=== PATIENT | female | born 1935 | race Caucasian/White ===

== ENCOUNTER → 2017-03-23 | Outpatient (CLI) | payer OTHER ==
[~2017-03-23] MED LIST: APAP650 PO; CHLORTHALIDONE25 MG PO; IBUPROFEN 200200 M1 PO; LISINOPRIL20 MG PO; LOPRESSOR50 PO; POTASSIUM20 PO; PROZAC20 MG PO; SYNTHROID75 MCG PO; VITAMIN D1000 UNI1 PO; VOLTAREN GEL 1100 GM TOP; XANAX 0.5 MG0.5 M1 PO
== END ==
LOC: RAD 09:12
DX: K44.9 Diaphragmatic hernia without obstruction or gangrene (principal); I10 Essential (primary) hypertension; E03.9 Hypothyroidism, unspecified; E04.1 Nontoxic single thyroid nodule; E83.52 Hypercalcemia; Z98.890 Other specified postprocedural states

== ENCOUNTER 2017-06-03 18:34 | Inpatient (IN) | payer OTHER ==
[~2017-06-03] VITALS: Ht 160 cm; Wt 56.5 kg
--- NOTE | ~2017-06-03 | D ---
[facility] [place] [address] DISCHARGE SUMMARY Name: SEBASTIAN BOSS Room #: 404-P [facility] IN M.R.#: [id number] Admission: 06/03/17 Attend Phys: Crystal Huggins Discharge: 06/05/17 Date of : 31 Report #: [id number] THIS REPORT FOR: //name// CC: Fabricio Copeland DATE OF SERVICE: 06/05/2017 FINAL DIAGNOSES: 1. Subacute hemorrhagic stroke. 2. Hypertension. HOSPITAL COURSE: The patient was admitted with confusion. She had an outpatient MRI, which revealed a subacute hemorrhagic stroke. She remained medically stable during the course of her stay. She had no change in neurologic symptoms. Dr. Sifuentes saw her in consultation. Ultimately, the plan was for medical management. She had no other interval complication. DISPOSITION: She will be discharged home with diet and activity as tolerated. Follow up with Dr. Copeland in 1-2 weeks. She should be on the current medications. <ELECTRONICALLY SIGNED> By: Angelo Dias MD 07/02/17 0855 1509 1552 Angelo Dias MD /nt
--- NOTE | ~2017-06-03 | 2DMMODE ---
[facility] [address] [place] [address] 2 D/M-MODE ECHOCARDIOGRAM Name: SEBASTIAN BOSS Room #: 404-P ADM IN M.R.#: [id number] Admission: 06/03/17 Attend Phys: Fabricio Puente Discharge: Date of : 31 Date of Service: 06/04/17 1118 Report #: [id number] THIS REPORT FOR: //name// APPROVED REPORT Study performed: 06/04/2017 09:35:12 EXAM: Comprehensive 2D, Doppler, and color-flow Echocardiogram Patient Location: Echo lab Room #: [facility] Status: routine BSA: 1.52 HR: 54 bpm BP: 149/62 mmHg Rhythm: NSR Other Information Study Quality: Adequate/poor parasternal window due to breast implants Indications CVA/TIA Echo Enhancing Agent Comments: Patient did not want IV started for bubble study. 2D Dimensions RVDd: 29.85 mm LVEF(%): 75.40 (>50%) IVSd: 10.83 (7-11mm) LVOT Diam: 18.91 (18-24mm) LVDd: 30.91 mm PWd: 9.40 (7-11mm) Ascending Ao: 27.31 (22-36mm) LVDs: 17.66 (25-40mm) Aortic Root: 28.42 mm Robles's LVEF: 75.40 % Volumes Left Atrial Volume (Systole) Single Plane 4CH: 22.94 mL Single Plane 2CH: 28.37 mL LA ESV Index: 18.00 mL/m2 Aortic Valve AoV Peak Rico.: 1.29 m/s AO Peak Gr.: 6.68 mmHg LVOT Max P.64 mmHg LVOT Max V: 0.95 m/s NEAL Vmax: 2.07 cm2 [facility] [place] [address] 2 D/M-MODE ECHOCARDIOGRAM Name: SEBASTIAN BOSS Room #: 404-P [facility] IN .R.#: [id number] Admission: 06/03/17 Attend Phys: Fabricio Puente Discharge: Date of : 31 Date of Service: 06/04/17 1118 Report #: [id number] Mitral Valve E/A Ratio: 0.8 MV Decel. Time: 251.96 ms MV E Max Rico.: 0.62 m/s MV A Rico.: 0.76 m/s MV PHT: 73.07 ms IVRT: 78.43 ms Pulmonary Valve PV Peak Rico.: 0.77 m/s PV Peak Gr.: 2.40 mmHg Pulmonary Vein P Vein S: 0.54 m/s P Vein A: 0.38 m/s P Vein D: 0.41 m/s P Vein A Dur.: 120.0 msec P Vein S/D Ratio: 1.32 Tricuspid Valve TR Peak Rico.: 2.47 m/s RAP Estimate: 5.00 mmHg TR Peak Gr.: 24.40 mmHg PA Pressure: 29.00 mmHg Left Ventricle The left ventricle is normal size. There is normal LV segmental wall motion. There is normal left ventricular wall thickness. Left ventricular systolic function is normal. LVEF is 60-65%. Mild diastolic dysfunction is present (impaired relaxation pattern). Right Ventricle The right ventricle is normal size. The right ventricular systolic function is normal. Atria The left atrium size is normal. No ASD or PFO noted with color doppler. The right atrium size is normal. Aortic Valve The aortic valve is not well visualized. No aortic regurgitation is noted. There is no aortic valvular stenosis. Mitral Valve The mitral valve is normal in structure. Trace to mild mitral regurgitation. Tricuspid Valve [facility] [address] [place] [address] 2 D/M-MODE ECHOCARDIOGRAM Name: SEBASTIAN BOSS Room #: 404-P [facility] IN [facility]#: [id number] Admission: 06/03/17 Attend Phys: Fabricio Peunte Discharge: Date of : 31 Date of Service: 06/04/17 1118 Report #: [id number] The tricuspid valve is normal in structure. Mild tricuspid regurgitation. Estimated PAP is 30mmHg. Pulmonic Valve Pulmonic valve is not well visualized. Great Vessels The aortic root is normal in size. The ascending aorta is normal in size. IVC is normal in size and collapses >50% with inspiration. Pericardium There is no pericardial effusion. <Conclusion> The left ventricle is normal size. LVEF is 60-65%. Mild diastolic dysfunction is present (impaired relaxation pattern). The aortic valve is not well visualized. No aortic regurgitation is noted. The mitral valve is normal in structure. Trace to mild mitral regurgitation. The tricuspid valve is normal in structure. Mild tricuspid regurgitation. Estimated PAP is 30mmHg. Pulmonic valve is not well visualized. There is no pericardial effusion. No ASD or PFO noted with color doppler. <ELECTRONICALLY SIGNED> By: Randal Rizzo MD 06/04/17 1118 1118 1118 Randal Rizzo MD /INF
--- NOTE | ~2017-06-03 | HC ---
[facility] [place] [address] CONSULTATION Name: SEBASTIAN BOSS Room #: 404-P [facility] IN M.R.#: [id number] Admission: 06/03/17 Attend Phys: Crystal Huggins Discharge: 06/05/17 Date of : 33 Report #: [id number] THIS REPORT FOR: //name// CC: Fabricio Copeland DATE OF SERVICE: 06/04/2017 HISTORY OF PRESENT ILLNESS: This is an 81-year-old female patient who was evaluated by me because this patient had some memory issues and was not doing very well and was confused. She was still able to drive according to her. She had some difficulty with concentration as well as communication. This was also associated with drowsiness. As an evaluation for that, this patient had an MRI of the brain. MRI was done outside and as I understand demonstrates a small stroke. I do not have the films to review that, but it looks like it was in the left putamen and the caudate nucleus. The patient continued to be same. REVIEW OF SYSTEMS: Indicate that she was functional before this stroke. She denies any prior history of stroke. She had started taking antidepressant around 05/11. She does not have any major cardiac problems. She was not on aspirin when it happened. She does feel depressed, but does not look like she has any new eye, ENT, cardiac, respiratory, GI, , musculoskeletal, constitutional, dermatological, hematological symptoms. She does feel depressed. She does not have any new endocrine, throat or allergic symptom associated with present symptomatology. She does have a problem with expression. She has hypothyroidism, arthritis and GERD in the past. PAST MEDICAL HISTORY: Negative for stroke. FAMILY HISTORY: Negative for early age stroke. SOCIAL HISTORY: She does not have any history of alcohol or tobacco use. PHYSICAL EXAMINATION: The patient's examination indicate she is alert, she is responsive. She is oriented. She does look depressed. She does have some difficulty with expressing herself. Her speech, concentration and fund of knowledge was examined. Her speech is mildly impaired, but memory and fund of knowledge looks intact. Cranial nerve examination 2-12 mostly looks unremarkable. Her strength, sensation, reflexes and tone looks symmetrical. There is no cerebellar sign. There is no meningeal sign in this patient. I do not hear any carotid bruit. There is no thyroid mass. This patient is reasonably well-developed individual who does not have any dysmorphic features of eyes, ears and face. Her vision and hearing looks adequate. She does not have any edema, cyanosis or jaundice. Pulses are difficult to feel, but I think are palpable. Cardiac examination does not show any abnormality or atrial fibrillations or any marked problem with the heart sound. No respiratory difficulty or rhonchi was noticed. Blood pressure is 122/42, respiration is 20, [facility] [address] [place] [address] CONSULTATION Name: SEBASTIAN BOSS Room #: 404-P [facility] IN M.R.#: [id number] Admission: 06/03/17 Attend Phys: Crystal Huggins Discharge: 06/05/17 Date of : 33 Report #: [id number] pulse is 53 and temperature is 98.3. LABORATORY DATA: White count is 7.1 and GFR is only 39. She did have an MRI and carotid Doppler. I have only reports and that was reviewed. IMPRESSION: 1. 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 2. Evaluation to look for any vascular risk factor and predisposition for further strokes. 3. She will need extensive monitoring for atrial fibrillation as an outpatient. 4. I agree with antidepressant because she does appear to be depressed either because of stroke or otherwise. 5. We will look for some other cause like B12, thyroid. RECOMMENDATIONS: 1. MRA of the head and neck tomorrow. 2. No antiplatelet for the time being, but once the hemorrhage clear up she can be started. 3. I will do the CT for comparison and we will look at it to see if there is any doubt for the tumor and if there is a doubt for the tumor we will do the enhanced MRI or CT. 4. We will do some blood workup like TSH and vitamin B12. 5. We will await rest of the workup. Thank you very much for this referral and if you have any question, please feel free to contact me. <ELECTRONICALLY SIGNED> By: John Sifuentes MD 06/17/17 1355 1714 0014 John Sifuentes MD /nt
--- NOTE | ~2017-06-03 | H ---
[facility] [place] [address] HISTORY AND PHYSICAL Name: KARYNSEBASTIAN Maulik Room #: 404-P [facility] IN M.R.#: [id number] Admission: 06/03/17 Attend Phys: Crystal Huggins Discharge: Date of : 33 Report #: [id number] THIS REPORT FOR: //name// CC: Fabricio Copeland DATE OF SERVICE: 06/03/2017 CHIEF COMPLAINT: Confusion. HISTORY OF PRESENT ILLNESS: The patient is an 81-year-old female who was admitted from home with recent symptoms of confusion and a recent stroke. She reported for the last couple of weeks of difficulty with her concentration and memory. She said she has felt kind of weak all over and "fog." She had trouble communicating, and there was one day where she was very drowsy. She was seen in the office and then directed for an MRI of the brain yesterday. This revealed a subacute small pontine hemorrhagic stroke. She has been admitted for medical treatment. PAST MEDICAL HISTORY: Hypothyroidism, arthritis, GERD. PAST SURGICAL HISTORY: Noncontributory. FAMILY HISTORY: Unknown. SOCIAL HISTORY: No chronic alcohol or tobacco use. ALLERGIES: Unknown. MEDICATIONS: Prilosec, Levoxyl. REVIEW OF SYSTEMS: She denies headache, visual change, chest pain, shortness of breath, abdominal pain, nausea, vomiting, diarrhea, constipation, dysuria, syncope. OBJECTIVE: VITAL SIGNS: Temperature 36.7, pulse 54, respirations 20, blood pressure 149/62, O2 sat 99% on room air. GENERAL: She is awake and alert, in no distress. HEAD AND NECK: Unremarkable. LUNGS: Clear. HEART: Regular. ABDOMEN: Soft, normoactive bowel sounds. EXTREMITIES: No edema. NEUROLOGIC: She is oriented to place. She knew me by name. Follows all commands. Global strength intact about 4/5 throughout. [facility] [address] [place] [address] HISTORY AND PHYSICAL Name: SEBASTIAN BOSS Room #: 404-[facility]#: [id number] Admission: 06/03/17 Attend Phys: Crystal Huggins Discharge: Date of : 33 Report #: [id number] BASIC LABORATORY DATA: Unremarkable. Creatinine 1.3. Chest x-ray negative. MRI revealed acute or subacute infarct including hemorrhagic component to the left putamen and caudate. There are other signs of white matter ischemic changes. ASSESSMENT: Hemorrhagic stroke. PLAN: For now, it should be medically managed. It is unclear when exactly this event happened as she has had about 2 weeks or more of symptoms. I have asked the Neurology Service to follow her. May need followup imaging in the coming days to ensure stability. Currently, she is medically stable and stable from a neurologic standpoint that she can remain hospitalized here. <ELECTRONICALLY SIGNED> By: Angelo Dias MD 06/04/17 1243 0958 1024 Angelo Dias MD /moriah
[2017-06-03 20:00] VITALS: BP 152/70
[2017-06-04 04:00] VITALS: BP 161/66
[2017-06-04 05:35] LABS: HEMATOCRIT 39.4 % (37.0-47.0); HEMOGLOBIN 13.5 gm/dL (12.0-15.0); MCHC 34.2 g/dL (28.0-37.0); MCV 87.7 fL (80.0-100.0); RBC 4.49 mil/uL (4.20-5.00); RDW 13.1 % (10.5-14.5); WBC 7.1 thou/uL (4.0-11.0)
[2017-06-04 05:45] LABS: ALBUMIN 3.4 g/dL (3.4-5.0); CALCIUM 9.1 mg/dL (8.5-10.1); CREATININE 1.3 mg/dL (0.6-1.0); POTASSIUM 3.6 mmol/L (3.5-5.1); TOTAL PROTEIN 6.5 g/dL (6.4-8.2)
[2017-06-04 07:02] VITALS: BP 149/62
[2017-06-04 08:20] LABS: URINE BILIRUBIN NEGATIVE (Negative); URINE BLOOD 1+ (Negative); URINE CLARITY CLEAR; URINE COLOR YELLOW; URINE GLUCOSE-RANDOM* NEGATIVE (Negative); URINE KETONES NEGATIVE (Negative); URINE LEUKOCYTES NEGATIVE (Negative); URINE NITRITE NEGATIVE (Negative); URINE PROTEIN (DIPSTICK) NEGATIVE (Negative); URINE UROBILINOGEN 0.2 E.U./dl (0.2-1.0)
[2017-06-04 08:31] LABS: SQUAMOUS 4-10 Moderate /LPF (0-3)
[2017-06-04 08:32] LABS: BACTERIA 1-9 Few /HPF (None Seen); CASTS None Seen /LPF (None Seen); CRYSTALS None Seen /LPF (None Seen); URINE RBC 3-10 Few /HPF (0-2); URINE WBC 0-5 Rare /HPF (0-5)
[2017-06-04 15:27] VITALS: BP 122/42
[2017-06-04] MEDS ORDERED: SYNTHROID75 MCG PO (17:15)
[2017-06-04] MEDS ORDERED: CHLORTHALIDONE25 MG PO (17:15)
[2017-06-04] MEDS ORDERED: LISINOPRIL20 MG PO (17:16)
[2017-06-04] MEDS ORDERED: LOPRESSOR50 PO (17:16)
[2017-06-04] MEDS ORDERED: POTASSIUM20 PO (17:17)
[2017-06-04] MEDS ORDERED: VITAMIN D1000 UNI1 PO (17:17)
[2017-06-04] MEDS ORDERED: PROZAC20 MG PO (17:23)
[2017-06-04 19:33] VITALS: BP 116/46
[2017-06-05 04:52] VITALS: BP 124/58
[2017-06-05 04:52] LABS: CHOLESTEROL 198 mg/dL (<200); HDL CHOLESTEROL 42 mg/dL (>40); LDL CHOLESTEROL 121 mg/dL (<100); TC:HDL 4.7 Ratio (Not establshd); TRIGLYCERIDE 175 mg/dL (<150); VLDL 35 mg/dL (<40)
[2017-06-05 04:54] LABS: SERUM ASSESSMENT Slight Lipemia
[2017-06-05 05:31] LABS: TSH 0.605 uIU/mL (0.358-3.740)
[2017-06-05 09:09] VITALS: BP 136/56
[2017-06-05 16:23] VITALS: BP 112/42
[2017-06-05 17:42] VITALS: BP 112/42
[2017-06-28] MEDS ORDERED: APAP650 PO (13:53)
[2017-06-28] MEDS ORDERED: IBUPROFEN 200200 M1 PO (14:08)
[2017-06-28] MEDS ORDERED: VOLTAREN GEL 1100 GM TOP (14:21)
== END 2017-06-05 17:55 | disposition home or self-care (01) | DRG 66 ==
LOC: 4N 18:34
PROVIDERS: Internal Medicine Geriatric Medicine; Psychiatry & Neurology Neuromuscular Medicine
DX: I63.9 Cerebral infarction, unspecified (principal); R41.0 Disorientation, unspecified; E03.9 Hypothyroidism, unspecified; M19.90 Unspecified osteoarthritis, unspecified site; K21.9 Gastro-esophageal reflux disease without esophagitis; I10 Essential (primary) hypertension; E78.5 Hyperlipidemia, unspecified
CPT/HCPCS: 10790

== ENCOUNTER 2017-06-15 10:37 | Emergency (ER) | payer OTHER ==
--- NOTE | ~2017-06-15 | EKG ---
[address] [address] ELECTROCARDIOGRAM REPORT Name: SEBASTIAN BOSS [id number] Admission: 06/15/17 Attend Phys: Discharge: 06/15/17 Date of : 33 Report #: [id number] THIS REPORT FOR: //name// [facility] ED Test Date: 2017-06-15 Test Time: 12:20:04 Pat Name: SEBASTIAN BOSS Department: Room: Gender: F Beam Builder: naveed : 1935 Requested By: Haja Crook Order Number: [id number] MD: Leonid Mcconnell Measurements Intervals [place] [facility] [place] Rate: 50 P: 87 AL: 185 QRS: 70 QRSD: 92 T: 94 QT: 432 QTc: 394 Interpretive Statements Sinus bradycardia Nonspecific ST segment abnormality No previous ECG available for comparison Electronically Signed On 06-15-2017 17:07:28 CDT by Leonid Mcconnell [email or web address] <ELECTRONICALLY SIGNED> By: Leonid Mcconnell MD, [facility] 06/15/17 1707 1220 1220 Leonid Mcconnell MD, FACC /EPI
[~2017-06-15 10:37] MED LIST changes: -APAP650 PO; -IBUPROFEN 200200 M1 PO; -VOLTAREN GEL 1100 GM TOP; -XANAX 0.5 MG0.5 M1 PO
[2017-06-15 12:09] LABS: ABSOLUTE NEUTROPHILS 2.5 thou/uL (1.4-8.2); BASOPHILS 0.7 % (0.0-2.0); EOSINOPHILS 1.9 % (0.0-3.0); HEMATOCRIT 41.2 % (37.0-47.0); HEMOGLOBIN 14.3 gm/dL (12.0-15.0); LYMPHOCYTES 33.4 % (24.0-44.0); MCH 30.4 pg (26.0-34.0); MCHC 34.7 g/dL (28.0-37.0); MCV 87.4 fL (80.0-100.0); MONOCYTES 9.3 % (1.0-8.0); PLATELET COUNT 214 thou/uL (150-400); POLYS 54.7 % (36.0-66.0); RBC 4.71 mil/uL (4.20-5.00); RDW 13.3 % (10.5-14.5); WBC 4.6 thou/uL (4.0-11.0)
[2017-06-15 12:17] LABS: CALCIUM 9.7 mg/dL (8.5-10.1); CREATININE 1.2 mg/dL (0.6-1.0); POTASSIUM 3.8 mmol/L (3.5-5.1)
[2017-06-15 12:23] LABS: ALBUMIN 3.9 g/dL (3.4-5.0); TOTAL BILIRUBIN 1.2 mg/dL (<0.1-1.0); TOTAL PROTEIN 7.5 g/dL (6.4-8.2)
[2017-06-15 12:37] LABS: URINE BILIRUBIN NEGATIVE (Negative); URINE BLOOD 2+ (Negative); URINE CLARITY CLEAR; URINE COLOR YELLOW; URINE GLUCOSE-RANDOM* NEGATIVE (Negative); URINE KETONES NEGATIVE (Negative); URINE LEUKOCYTES-REFLEX 1+ (Negative); URINE NITRITE-REFLEX NEGATIVE (Negative); URINE PROTEIN (DIPSTICK) NEGATIVE (Negative); URINE SPECIFIC GRAVITY 1.015 (1.005-1.035); URINE UROBILINOGEN 0.2 E.U./dl (0.2-1.0)
[2017-06-15 12:51] LABS: CASTS None Seen /LPF (None Seen); SQUAMOUS 0-3 Few /LPF (0-3)
[2017-06-15 12:52] LABS: BACTERIA-REFLEX 1-9 Few /HPF (None Seen); CRYSTALS None Seen /LPF (None Seen); URINE RBC 0-2 Rare /HPF (0-2); URINE WBC-REFLEX 0-5 Rare /HPF (0-5)
== END 2017-06-15 13:23 | disposition home or self-care (01) ==
LOC: ER 10:37
PROVIDERS: Emergency Medicine
DX: R44.0 Auditory hallucinations (principal); R20.2 Paresthesia of skin; E03.9 Hypothyroidism, unspecified; M19.90 Unspecified osteoarthritis, unspecified site; K21.9 Gastro-esophageal reflux disease without esophagitis

== ENCOUNTER → 2017-06-28 | Outpatient (CLI) | payer OTHER ==
[~2017-06-28] VITALS: Ht 162.6 cm; Wt 54.9 kg
[~2017-06-28] MED LIST changes: +APAP650 PO; +IBUPROFEN 200200 M1 PO; +VOLTAREN GEL 1100 GM TOP
--- NOTE | ~2017-06-28 | HPC ---
[facility] [address] [place] [address] PAIN MANAGEMENT CONSULTATION Name: SEBASTIAN BOSS [facility] [id number] Admission: 06/28/17 Attend Phys: Grey Barksdale DO Discharge: Date of : 33 Report #: [id number] THIS REPORT FOR: //name// CC: Moreno Barksdale DATE OF SERVICE: 06/28/2017 HISTORY OF PRESENT ILLNESS: The patient is a very pleasant 81-year-old female seen in consultation at the request of Dr. Copeland for assistance with management of ongoing neck pain. The patient notes developed neck and shoulder pain without antecedent trauma sometime around March of this year. She is doing some physical therapy with nominal efficacy. Rates the pain a 5-7 on a VAS. Described it as intermittent, sharp and shooting. Seems to be exacerbated with any cervical movement. She has an interesting history, she notes that she went to see a massage therapist subsequent to developing these symptoms. She had 2 massages. After the second massage, she had significant cognitive changes. Notes that she had difficulty finding her words, felt like she was "in a fog." Ultimately was worked up and found to have suffered a left lentiform nucleus distribution small brain bleed. It was felt that on subsequent MR (2 days later) that the size was stable. Ultimately, she has been treated conservatively. She presents noting she is "improved" from a cognitive function, but still notes she has a little decline in her memory and cognitive function. She denies any myelopathic symptoms, no bowel or bladder continent changes or loss of proprioception of lower extremities. Pain is centered to the neck and shoulders. No radicular symptoms noted in the upper extremities. REVIEW OF SYSTEMS: Complete review of systems attached to chart and gone over with the patient. She does not smoke or drink alcohol to excess. Currently taking amlodipine, lisinopril and metoprolol for hypertension, levothyroxine chronically for hypothyroidism. She has been retired for 30 years. Pain impact score averages about 39/70. PHYSICAL EXAMINATION: VITAL SIGNS: Reveals a 5 feet 4 inches, 121 pounds female, BMI is 20.8 kilograms per meter squared. Blood pressure is 157/82, pulse 55, respirations 14. NEUROLOGIC: Cranial 2-12 appear intact. Extraocular muscles are intact. She is alert and oriented to person, place and time, though admits to being a bit of a poor historian. NECK: Cervical range of motion exacerbates pain in all planes. Pain is primarily low neck and the shoulders, does not radiate into the arms. Thyroid [address] [address] PAIN MANAGEMENT CONSULTATION Name: SEBASTIAN BOSS Room #: REG [facility] Luz Maria.#: [id number] Admission: 06/28/17 Attend Phys: Grey Barksdale DO Discharge: Date of : 33 Report #: [id number] is unremarkable. EXTREMITIES: Upper extremity strength is preserved, 4/5 to all muscle groups tested. Biceps, triceps, brachioradialis reflexes are symmetric. HEART: Regular and rhythmical with a grade 2/6 systolic ejection murmur. LUNGS: Clear. ABDOMEN: Benign. MUSCULOSKELETAL: Rises from chair using the armrest. Gait is tandem. Slight ataxia with some movements when asked to perform a toe touch (lumbar flexion is good to 90 degrees). Upon arising, she had a little dysequilibrium that passed quickly. Very tender over the inferior cervical facets, some trigger points noted in the trapezius bilaterally. DIAGNOSTIC STUDIES: X-ray from diagnostic imaging centers appears was accomplished on 05/24/2017 does note facet degenerative changes at C5-C6 and C6-C7. This does correlate with cervical spondylotic symptoms clinically at this level. Incidentally, I did note when the patient was in the ER on 06/15/2017, she has poor renal function, BUN and creatinine were 22 and 1.2 respectively yielding a eGFR of 43. ASSESSMENT: Symptomatic cervical spondylosis without myelopathy. RECOMMENDATION: 1. We discussed bilateral C5-C6 and C6-C7 facet joint injections under fluoroscopy. The patient would like to wait 1 week, have her daughter here. 2. We will trial topical Voltaren gel. Even with low kidney function, nominal systemic absorption should enable us to use this agent. I did caution the patient that she should not use any oral NSAID (she had been using Advil). Thank you for allowing me to participate in the patient's care. I will plan on moving forward with cervical facet joint injection under fluoroscopy at next visit. I will keep you abreast of her progress. <ELECTRONICALLY SIGNED> By: Grey Barksdale DO 06/30/17 0753 1429 0012 Grey Barksdale DO /nt
[2017-06-28 13:50] VITALS: BP 157/82
== END ==
LOC: PAIN 06-25 07:17
DX: M47.892 Other spondylosis, cervical region (principal)

== ENCOUNTER → 2017-07-05 | Outpatient (CLI) | payer OTHER ==
[~2017-07-05] VITALS: Ht 162.6 cm; Wt 55.5 kg
--- NOTE | ~2017-07-05 | HPC ---
[facility] [place] [address] PAIN MANAGEMENT CONSULTATION Name: SEBASTIAN BOSS [facility] [id number] Admission: 07/05/17 Attend Phys: Grey Barksdale DO Discharge: Date of : 33 Report #: [id number] THIS REPORT FOR: //name// CC: Fabricio Barksdale DATE OF SERVICE: 07/05/2017 The patient is an 81-year-old female, prior seen in the pain clinic 06/28/2017. She was seen in consultation at that time, diagnosed with symptomatic cervical spondylosis without myelopathy. We sought authorization for bilateral cervical facet joint injections x 2 levels. She returns to pain clinic today with ongoing pain in the neck, exacerbated with cervical rotation and side bending. PHYSICAL EXAMINATION: Shows tenderness a little bit higher. On physical exam in the fluoroscopy suite, it was determined that the epicenter of pain was at the C3-C4 and C4-C5 facet joints. We would like to proceed with bilateral C3-C4 and C4-C5 facet joint injection under fluoroscopy. ASSESSMENT: Symptomatic cervical spondylosis without myelopathy. PROCEDURE: Bilateral 2-level cervical facet joint injections under fluoroscopy (4 facet joints in total). PROCEDURE NOTE: After written informed consent was obtained, the patient was taken to fluoroscopy suite, placed in prone position. After sterile prep and drape, skin wheal was raised. A 22-gauge stylet needle was placed to contact posterior aspect of the left C3-C4 and C4-C5 facet joints. AP and lateral projections showed good needle placement in the middle of the lateral mass and at the posterior aspect of the joint. The procedure was repeated on the contralateral, i.e., right side. After all four needles were placed, each needle was then injected with 2 mg of Decadron plus 1 mL of 0.5% preservative-free bupivacaine. All 4 needles were removed, area was cleansed, Band-Aids applied. Fluoroscopy time was 17 seconds. The patient was allowed to ambulate to recovery room, monitored for an appropriate period of time, discharged in good and stable condition, noting pain was absent on discharge, having been a 5 on VAS on admission. Follow up is as needed. <ELECTRONICALLY SIGNED> By: Grey Barksdale DO 07/07/17 0819 1214 1420 Grey Barksdale DO /nt
[2017-07-05 09:21] VITALS: BP 161/67
== END | disposition home or self-care (01) ==
LOC: PAIN 07:00
DX: M47.812 Spondylosis without myelopathy or radiculopathy, cervical region (principal)

== ENCOUNTER → 2017-07-26 | Outpatient (CLI) | payer OTHER ==
[~2017-07-26] VITALS: Ht 162.6 cm; Wt 54.5 kg
[~2017-07-26] MED LIST changes: +XANAX 0.5 MG0.5 M1 PO
--- NOTE | ~2017-07-26 | HPC ---
[facility] [place] [address] [place] [address] PAIN MANAGEMENT CONSULTATION Name: KARYNSEBASTIAN L [facility] [id number] Admission: 07/26/17 Attend Phys: Grey Barksdale DO Discharge: Date of : 33 Report #: [id number] THIS REPORT FOR: //name// CC: Fabricio Barksdale HISTORY OF PRESENT ILLNESS: The patient is an 82-year-old female, prior seen in the pain clinic on 07/05/2017. We progressed to perform bilateral C3-C4 and C4-C5 cervical facet joint injections at that time. Prior intervention and consultation on 06/28/2017, facet joint injection at C5-C6 and C6-C7 had afforded nominal relief, though the second injection little bit higher at C3-C4 and C4-C5 did afford significant ongoing relief. The patient rates her pain 4 on a VAS today. Notes pain is in neck and bilateral shoulders; exacerbated with cervical range of motion, though to her credit, she has been doing cervical range of motion and upper extremity exercises as taught at physical therapy. She feels that she is getting better. She prior had a lacunar stroke. She does tell me that she feels overall that her cognitive function is improving as she slowly resolves from sequelae of that event. PHYSICAL EXAMINATION: Shows pleasant 82-year-old female, BMI is 20.6 kilograms per meter squared. Blood pressure is 152/67, pulse 54, respirations 16. Subjective pain score is 4 on a VAS. She has not fallen in the last 3 months. Medication list was reconciled. She has been treated for hypertension. She does not use tobacco products. She is alert and oriented to person, place, and time and judged to be a reasonable historian. Cervical range of motion is modestly limited. Very tender over the mid superior cervical facets. Palpation here reproduces pain in posterior occiput and into the shoulders. Upper extremity strength, however, is preserved. Hand grasp is symmetric. ASSESSMENT: Symptomatic cervical spondylosis without myelopathy by clinical exam and history. RECOMMENDATIONS: The patient would like to repeat cervical C3-C4 and C4-C5 facet joint injections under fluoroscopy, though she was fairly anxious at last visit. We have elected to give the patient prescription for Xanax 0.5 mg, have a lifter driver bring her next week for a scheduled bilateral C3-C4 and C4-C5 facet joint injection under fluoroscopy. Discharged in good and stable condition. <ELECTRONICALLY SIGNED> By: Grey Barksdale DO 07/29/17 0701 1152 1358 Grey Barksdale DO /nt
[2017-07-26 09:03] VITALS: BP 152/67
== END ==
LOC: PAIN 06:46
DX: M47.892 Other spondylosis, cervical region (principal)

== ENCOUNTER → 2017-07-28 | Outpatient (CLI) | payer OTHER | LOC: MRI 06:28 | DX: I63.312 Cerebral infarction due to thrombosis of left middle cerebral artery (principal); R41.3 Other amnesia; G31.9 Degenerative disease of nervous system, unspecified ==

== ENCOUNTER → 2017-08-09 | Outpatient (CLI) | payer OTHER ==
[~2017-08-09] VITALS: Ht 165.1 cm; Wt 55.4 kg
--- NOTE | ~2017-08-09 | HPC ---
[facility] [place] [address] PAIN MANAGEMENT CONSULTATION Name: SEBASTIAN BOSS [facility] [id number] Admission: 08/09/17 Attend Phys: Grey Barksdale DO Discharge: Date of : 33 Report #: [id number] THIS REPORT FOR: //name// CC: Fabricio Barksdale HISTORY OF PRESENT ILLNESS: The patient is a very pleasant 82-year-old female being treated for symptomatic cervical spondylosis without myelopathy. Last seen in pain clinic on 07/26/2017. We sought authorization to repeat bilateral C3-C4 and C4-C5 facet joint injection under fluoroscopy. Given the patient's subjective anxiety, I did write for Xanax 0.5 to be taken this morning. 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 Returns to pain clinic noting pain is 6/7 on a VAS, pain is primarily in the neck, exacerbated with cervical rotation and side bending. No radicular symptoms are noted. ASSESSMENT: Symptomatic cervical spondylosis. PROCEDURE: Two-level bilateral cervical facet joint injection under fluoroscopy (4 facets in total). PROCEDURE NOTE: Bilateral C3-C4 and C4-C5 facet joint injection under fluoroscopy. DESCRIPTION OF PROCEDURE NOTE: After informed consent was obtained, the patient was taken to the fluoroscopy suite and placed in prone position. After sterile prep and drape, skin was raised. A 22-gauge stylet was placed to contact posterior aspect of the left C3-C4 and C4-C5 facet joints. AP and lateral projections showed good needle placement approaching posterior aspect of the joint and the middle of the lateral mass on AP projection. Two more needles were placed in a mirror fashion corresponding to the right C3-C4 and C4-C5 facets. After all needles were placed, stylets were removed and 2 mg of Decadron plus 1 mL of 0.5% preservative-free bupivacaine was injected at all 4 sites. All 4 needles were removed. The area was cleansed and Band-Aid was applied. The patient was monitored for appropriate period of time, discharged in good stable condition, noting significant improvement of baseline pain, in fact noted the pain was absent on discharge. Fluoroscopy time was under 20 seconds. Followup simply as needed. <ELECTRONICALLY SIGNED> By: Grey Barksdale DO 08/11/17 0729 [id number] Grey Barksdale DO /nt
[2017-08-09 09:31] VITALS: BP 197/90
== END | disposition home or self-care (01) ==
LOC: PAIN 06:54
DX: M47.812 Spondylosis without myelopathy or radiculopathy, cervical region (principal); G89.29 Other chronic pain; F41.9 Anxiety disorder, unspecified; Z79.899 Other long term (current) drug therapy

== ENCOUNTER 2018-11-01 17:59 | Inpatient (IN) | payer OTHER ==
[~2018-11-01] VITALS: Ht 165.1 cm; Wt 54.9 kg
--- NOTE | ~2018-11-01 | H ---
[facility] [place] [address] HISTORY AND PHYSICAL Name: SEBASTIAN BOSS Room #: 355-P ADM IN M.R.#: [id number] Admission: 11/02/18 Attend Phys: Angelo Dias MD Discharge: Date of : 33 Report #: [id number] THIS REPORT FOR: //name// CC: Fabricio Dias DATE OF SERVICE: 11/02/2018 HISTORY OF PRESENT ILLNESS: This is an 83-year-old female with hypertensive urgency. HISTORY OF PRESENT ILLNESS: This is a patient who has been very dizzy and has had a previous history of lacunar stroke a few years ago, who was just having significant problems functionally with a little more forgetfulness and failure in the home environment and her friend noted her to not be doing well. Pressure was 220 systolic and he brought her to the Emergency Room where she was subsequently admitted. PAST MEDICAL HISTORY: Noteworthy for hypothyroidism. She also has a history of hypertension, degenerative arthritis. She has had hepatitis C that was treated and is currently asymptomatic and resolved. MEDICATIONS: List includes levothyroxine, chlorthalidone, recently stopped metoprolol. She is on lisinopril 20 mg a day, potassium chloride, vitamin D, fluoxetine 20 mg daily. ALLERGIES: She has no known drug allergies. FAMILY HISTORY: Noncontributory. SOCIAL HISTORY: She lives independently and is still functional. No smoking or alcohol of any significance. REVIEW OF SYSTEMS: No cardiopulmonary, GI or complaints, just ongoing neurologic complaints with the dizziness. PHYSICAL EXAMINATION: GENERAL: Shows her lying in bed in the ER, she is in no distress, but she seems very weakened. HEENT: Otherwise, negative. NECK: Supple, without thyromegaly or adenopathy. CHEST: Clear. CARDIOVASCULAR: Showed a regular rhythm without murmur. ABDOMEN: Soft and nontender, without hepatosplenomegaly. EXTREMITIES: No cyanosis, clubbing or edema. NEUROLOGIC: Showed nothing focal. [facility] [address] [place] [address] HISTORY AND PHYSICAL Name: SEBASTIAN BOSS Room #: 355-[facility] IN [facility]#: [id number] Admission: 11/02/18 Attend Phys: Angelo Dias MD Discharge: Date of : 33 Report #: [id number] LABORATORY DATA: Laboratory parameters were reviewed and normal. CT head negative. Previous MRI of the cranium was positive for her remote history of lacunar stroke. ASSESSMENT AND PLAN: 1. This is a patient, 83 years of age with history of lacunar stroke and cerebrovascular disease with probably some early dementia findings, who now is suffering from hypertensive urgency. Pressures in the Emergency Room were 220 systolic. 2. Hypothyroidism, status post thyroid surgery. 3. History of hepatitis C, treated. By: [id number] Fabricio Copeland MD /PMT
[~2018-11-01 17:59] MED LIST changes: -LOPRESSOR50 PO; +METOPROLOL SUCC50 MG PO
[2018-11-01 18:00] VITALS: BP 188/77
[2018-11-01 20:30] LABS: ABSOLUTE NEUTROPHILS 4.7 thou/uL (1.4-8.2); BASOPHILS 0.5 % (0.0-2.0); HEMATOCRIT 41.1 % (37.0-47.0); HEMOGLOBIN 14.1 gm/dL (12.0-15.0); LYMPHOCYTES 22.2 % (24.0-44.0); MCHC 34.4 g/dL (28.0-37.0); MCV 90.2 fL (80.0-100.0); MONOCYTES 11.1 % (1.0-8.0); PLATELET COUNT 235 thou/uL (150-400); POLYS 65.2 % (36.0-66.0); RBC 4.56 mil/uL (4.20-5.00); RDW 12.8 % (10.5-14.5); WBC 7.2 thou/uL (4.0-11.0)
[2018-11-01 20:38] LABS: CALCIUM 10.1 mg/dL (8.5-10.1); POTASSIUM 3.5 mmol/L (3.5-5.1)
[2018-11-02 07:15] VITALS: BP 188/77
[2018-11-02 11:18] VITALS: BP 117/48
[2018-11-02 13:13] VITALS: BP 123/42
[2018-11-02 14:06] VITALS: BP 130/58
[2018-11-02 19:32] VITALS: BP 156/69
[2018-11-03 04:05] VITALS: BP 158/82
[2018-11-03] MEDS ORDERED: LEVOXYL50 MCG PO (06:26)
[2018-11-03 08:02] VITALS: BP 163/80
[2018-11-03 11:26] VITALS: BP 161/76
[2018-11-03] MEDS ORDERED: NORVASC5 MG PO (13:22)
[2018-11-03] MEDS ORDERED: PROZAC 20 MG20 MG PO (13:23)
[2018-11-03] MEDS ORDERED: SYNTHROID75 MCG PO (15:20)
[2018-11-03 15:21] VITALS: BP 161/76
[2018-11-03 16:32] VITALS: BP 161/76
== END 2018-11-03 16:30 | disposition home or self-care (01) | DRG 305 ==
LOC: ER 17:59 → EROBS 11-02 02:00 → 3W 11-02 02:00 → ENTRNSPT 11-03 16:20 → 3W 11-03 16:30
PROVIDERS: Emergency Medicine; ADMIT Internal Medicine Geriatric Medicine
DX: I16.0 Hypertensive urgency (principal); E03.9 Hypothyroidism, unspecified; I10 Essential (primary) hypertension; M19.90 Unspecified osteoarthritis, unspecified site; Z86.19 Personal history of other infectious and parasitic diseases; Z79.899 Other long term (current) drug therapy; Z86.73 Personal history of transient ischemic attack (TIA), and cerebral infarction without residual deficits
CPT/HCPCS: 10879

== ENCOUNTER 2018-11-07 14:53 | Inpatient (IN) | payer OTHER ==
[~2018-11-07] VITALS: Ht 165.1 cm; Wt 55.0 kg
--- NOTE | ~2018-11-07 | HC ---
[facility] [place] [address] CONSULTATION Name: SEBASTIAN BOSS Room #: 461-P ADM IN M.R.#: [id number] Admission: 11/07/18 Attend Phys: Crystal Huggins Discharge: Date of : 33 Report #: [id number] THIS REPORT FOR: //name// CC: Fabricio Copeland DATE OF SERVICE: 11/09/2018 HISTORY OF PRESENT ILLNESS: The patient is an 83-year-old white female who had been previously fully independent, ambulatory without gait aids, driving in the community. She had an episode of apparent syncopal episode and had a fall and was admitted with hypertensive urgency. She was discharged on 11/03/2018 and has been home with her daughter. She ended up being readmitted on 11/07/2018 with dizziness. Complains of head spinning with headache and nausea with any movement of her head. She was diagnosed with vertigo. We have now been consulted regarding an acute rehab options. PAST MEDICAL HISTORY: Includes hypertension, remote cerebrovascular accident. MEDICATIONS: Please see the full medication listing. FAMILY HISTORY: None. SOCIAL HISTORY: She lives in a house with 2 steps in and 13 inside alone. Again, her daughter from [place] has been staying with her most recently. There is a son from [place] that is involved as well. They are considering getting involved for [employer] or other assistance to try to keep the patient in her home. REVIEW OF SYSTEMS: The patient notes that her brain is not working very well and she herself mentioned that she thinks she may have some dementia. She denied any current chest pain, shortness of breath, abdominal discomfort. PHYSICAL EXAMINATION: GENERAL: An 83-year-old white female in no obvious distress. She is of slender build. VITAL SIGNS: Her last recorded temperature is 98.1, pulse 77, respirations 14, blood pressure 105/44. NEUROLOGIC: Alert EOMs appeared to be full. Some lateral nystagmus No obvious visual field neglect to confrontation. Facies appeared to be symmetric. She is able to follow basic commands without difficulty, functional range of motion of both upper extremities. Strength is grade 4 to 4-/5. DTRs are trace to 1. Lower extremities, no focal calf swelling, functional range of motion, strength is grade 4 to 4-/5. I did not actually check for coordination testing. She is min assist with sit to stand. Gait is 40 feet min assist without an assistive device. She does have some decreased balance that is noted by physical therapy and has difficulty closing her eyes and maintaining balance without upper [address] [address] CONSULTATION Name: SEBASTIAN BOSS Room #: 461-P [facility] IN M.R.#: [id number] Admission: 11/07/18 Attend Phys: Crystal Huggins Discharge: Date of : 33 Report #: [id number] extremity support. She has slow guarded juan miguel small steps. ASSESSMENT: An 83-year-old white female with the following problem list: 1. Gait instability with balance decrease/vertigo question clinical accident. 2. Recent hypertensive urgency. 3. Apparent syncopal episode approximately 2 weeks ago with fall at home. 4. Complaints of dizziness. 5. Old left basal ganglia infarct. 6. Cerebrovascular disease with some memory issues. Rule out dementia. PLAN: The patient is a candidate for an acute in-hospital inpatient rehabilitation stay. Can plan on transfer to the [address] [place] [address] acute inpatient rehab [facility]. Medically, she will need to continue to have her blood pressure closely monitored with her hypertensive urgency. They have been giving her fluids while she is being managed here on acute care. Can plan on transfer to the acute rehab [facility] when medically ready. Thank you for asking us to assist in this patient's care. By: [id number] Angelo Barajas MD /nt
[~2018-11-07 14:53] MED LIST changes: +LEVOXYL50 MCG PO; +NORVASC5 MG PO; +PROZAC 20 MG20 MG PO
[2018-11-07 19:46] LABS: HEMATOCRIT 41.6 % (37.0-47.0); HEMOGLOBIN 14.7 gm/dL (12.0-15.0); MCH 31.3 pg (26.0-34.0); MCHC 35.2 g/dL (28.0-37.0); MCV 88.8 fL (80.0-100.0); RBC 4.69 mil/uL (4.20-5.00); RDW 12.5 % (10.5-14.5); WBC 6.1 thou/uL (4.0-11.0)
[2018-11-07 19:59] LABS: CALCIUM 9.9 mg/dL (8.5-10.1); POTASSIUM 3.6 mmol/L (3.5-5.1)
[2018-11-07 20:11] VITALS: BP 178/60
--- NOTE | 2018-11-07 20:47 | NUR ---
Received pt as a direct admit for Dr. Lona Copeland. Admission requirements done, orders carried out. Pain was verbalized by the pt that is intermittent in her head, managed with medication. POC followed IV inserted. VS stable, no signs of distress have been noted. Clear liquods are well tolerated, no nausea or vomiting has been noted.
[2018-11-07 21:56] VITALS: BP 175/66
[2018-11-08 03:34] VITALS: BP 149/64
--- NOTE | 2018-11-08 04:27 | NUR ---
ASSUMED CARE AROUND 1900. AXOX3. C/O DIZZINESS. MECLIZINE GIVEN. HYPERTENSION NOTED. CALLED HELMET BINDER PHYSICIAN FOR AND BP MEDS WERE RESUMED AND GIVEN. NO S/S ACUTE DISTRESS NOTED OR REPORTED AT THIS TIME. WILL CONT TO MONITOR FOR ANY CHANGES IN CONDITION.
[2018-11-08 07:25] VITALS: BP 131/63
--- NOTE | 2018-11-08 16:29 | NUR ---
patient admits with dizziness. Recent dc 11/03 with same diagnosis. Therapy worked with patient and recommeds post acute care. PREV casemgr gave family resources for pvt dty and HH care. Sp with patient and son at bedside. Reviewed jail list and possible 5n. List of jail with son to review. Patient resides at home alone. She has 2 children son and dtr who live in [facility]. 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
[2018-11-08 16:31] VITALS: BP 140/64
[2018-11-08 19:49] VITALS: BP 126/48
--- NOTE | 2018-11-08 20:13 | NUR ---
Received awake on bed. Due medications given as prescribed. A+Ox4. On room air. With IV at R AC, NS infusing well at 80cc/hr. Falls risk, falls bundle in place. Visited by relatives today. PT up to BSC with AO1. Pt able to swallow meds w/o difficulty. Pt seen by PT/OT today for evaluation. Assisted in ADLs. Pt's diet progressed to Regular diet, able to tolerate well, no nausea, vominting and abdominal pain noted. Vital signs stable. IVF discontinued as per physician's order.
--- NOTE | 2018-11-09 02:47 | NUR ---
ASSUMED CARE AROUND 190. AXOX4. PERSISTENT C/O HEADACHE AND DIZZINESS. MEDICATED PER MD ORDER, LATER PT DEVELOPED NAUSEA. ADMINISTERED MEDS PER MD ORDER AND NOW SLEEPING W/O COMPLAINTS. NO S/S ACUTE DISTRES NOTED OR REPORTED AT THIS TIME. WILL CONT TO MONITOR FOR ANY CHANGES IN CONDITION.
[2018-11-09 08:38] VITALS: BP 126/53
--- NOTE | 2018-11-09 11:59 | H ---
[facility] [place] [address] HISTORY AND PHYSICAL Name: SEBASTIAN BOSS Maulik Room #: 461-P ADM IN M.R.#: [id number] Admission: 11/07/18 Attend Phys: Crystal Huggins Discharge: Date of : 33 Report #: [id number] THIS REPORT FOR: //name// CC: Fabricio Copeland DATE OF SERVICE: 11/07/2018 CHIEF COMPLAINT: Dizziness. HISTORY OF PRESENT ILLNESS: The patient is an 83-year-old female who was admitted from the office with dizziness. Her symptoms began one day prior when she noted symptom of head spinning with headache and nausea with any movement of her head. She said even rolling over in bed or trying to sit up she had significant nausea. She was directed to the hospital for admission. She denied any other symptoms of unilateral weakness, facial droop or slurred speech. PAST MEDICAL HISTORY: Hypertension, remote stroke. PAST SURGICAL HISTORY: Unknown. FAMILY HISTORY: Unknown. SOCIAL HISTORY: She lives at home. Denies current alcohol or tobacco use. ALLERGIES: None. MEDICATIONS: Metoprolol, chlorthalidone, Norvasc. REVIEW OF SYSTEMS: Denies headache, chest pain, shortness of breath, abdominal pain, nausea, vomiting, diarrhea, constipation, syncope or fall. OBJECTIVE: VITAL SIGNS: Temperature 36.5, pulse 70, respirations 14, blood pressure 131/63, O2 sat 97% on room air. GENERAL: She is awake and alert, in no distress. HEAD, NECK: Unremarkable. LUNGS: Clear. HEART: Regular. ABDOMEN: Soft, normoactive bowel sounds. EXTREMITIES: No edema. NEUROLOGIC: Cranial nerves intact. Speech is fluent. No nystagmus. Global strength 4/5. LABORATORY DATA: Basic lab review was unremarkable. CT head unremarkable. [facility] [address] [place] [address] HISTORY AND PHYSICAL Name: SEBASTIAN BOSS Room #: 461-P [facility] IN ..#: [id number] Admission: 11/07/18 Attend Phys: Crystal Huggins Discharge: Date of : 33 Report #: [id number] ASSESSMENT: 1. Vertigo. 2. Hypertension. PLAN: For now, the symptom treatment and therapies to address her vertigo, could consider MRI if other neurologic symptoms develop or she does not improve. <ELECTRONICALLY SIGNED> By: Angelo Dias MD 11/09/18 1159 1026 1031 Angelo Dias MD /nt
--- NOTE | 2018-11-09 12:43 | NUR ---
DC planning discussion this morning with the attending and then the pt. 5N consult pending. Pt prefers acute rehab here over snf referral but is receptive to [facility] of [facility] if needed. Will follow.
--- NOTE | 2018-11-09 14:46 | NUR ---
DISCHARGE PLANNING. [facility] CONSULT PENDING, PATIENT AND FAMILY PREFERANCE IS TO DISCHARGE TO [address] [place] [address]. PATIENT AND FAMILY ALSO OPEN TO [facility] B. REFERRAL FAXED TO [facility], [facility] ADMISSIONS. UNIT SW AWARE. FOLLOWING.
[2018-11-09 14:55] VITALS: BP 105/44
[2018-11-09 19:29] VITALS: BP 62/33; BP 92/33
--- NOTE | 2018-11-09 20:13 | NUR ---
Isael pt care this am, vs stable no signs or verbalizations of distress have been noted. Pt is tolerating medication and diet well. Was able to work with PT and OT. Pt is able to walk from the bed to the toilet with a gait belt and a walker. POC followed. Pt might be transfering to 5N tomorrow. Pt and family did mention that they would like to kknow if her consult for hearing would be done here since she missed it while being in pt, Dr. Copeland was the MD that recommended this to her, night nurse advised.
[2018-11-10] VITALS (7 sets, daily range): BP systolic 82–116; BP diastolic 36–41
--- NOTE | 2018-11-10 04:29 | NUR ---
ASSUMED CARE OF PT AT 1900HRS. PT IS AOX4 AND LETS NEEDS BE KNOWN. PT COMPLAININED OF NAUSEA AND PRN MEDICATON DID LITTLE TO HELP WITH NAUSEA. FALL PRECAUTION AND PT WAS DIZZY THIS SHIFT. NO OTHER S/S OF ACUTE DISTRESS. WILL CONTINUE TO MONITOR.
[2018-11-10 11:14] LABS: ANION GAP 12 mmol/L (7-16); BUN 34 mg/dL (7-18); CALCIUM 8.7 mg/dL (8.5-10.1); CHLORIDE 99 mmol/L (98-107); CO2 24 mmol/L (21-32); CREATININE 1.6 mg/dL (0.6-1.0); GLUCOSE 156 mg/dL (74-106); POTASSIUM 3.2 mmol/L (3.5-5.1); SODIUM 135 mmol/L (136-145); TROPONIN-I <0.06 ng/mL (<0.06)
--- NOTE | 2018-11-10 14:34 | 2DMMODE ---
[place] [address] [facility] [email or web address] [address] 2 D/M-MODE ECHOCARDIOGRAM Name: SEBASTIAN BOSS Room #: 461-P [facility] IN M.R.#: [id number] Admission: 11/07/18 Attend Phys: Fabricio Puente Discharge: Date of : 33 Date of Service: 11/10/18 1434 Report #: [id number] THIS REPORT FOR: //name// APPROVED REPORT Study performed: 11/10/2018 13:47:45 EXAM: Comprehensive 2D, Doppler, and color-flow Echocardiogram Patient Location: Bedside Room #: 461 Status: routine BSA: 1.60 HR: 66 bpm BP: 116/39 mmHg Rhythm: NSR Other Information Study Quality: Technically Difficult Technically limited study due to breast implants, inability to position patient. Indications Dizziness and Vertigo Hypertension/HDD 2D Dimensions RVDd: 28.42 mm IVSd: 10.37 (7-11mm) LVOT Diam: 17.05 (18-24mm) LVDd: 32.83 mm PWd: 9.13 (7-11mm) Ascending Ao: 27.56 (22-36mm) LVDs: 18.25 (25-40mm) Aortic Root: 27.25 mm IVC: 12.00 mm Volumes Left Atrial Volume (Systole) Single Plane 4CH: 15.64 mL Single Plane 2CH: 40.37 mL LA ESV Index: 17.00 mL/m2 Aortic Valve AoV Peak Rico.: 1.26 m/s AO Peak Gr.: 6.39 mmHg LVOT Max P.18 mmHg LVOT Max V: 1.24 m/s NEAL Vmax: 2.25 cm2 Mitral Valve [facility] [place] [address] [place] [address] 2 D/M-MODE ECHOCARDIOGRAM Name: KARYNSEBASTIAN Maulik Room #: 461-P [facility] IN ..#: [id number] Admission: 11/07/18 Attend Phys: Fabricio Puente Discharge: Date of : 33 Date of Service: 11/10/18 1434 Report #: [id number] E/A Ratio: 0.7 MV Decel. Time: 249.46 ms MV E Max Rico.: 0.54 m/s MV A Rico.: 0.76 m/s MV PHT: 72.34 ms IVRT: 119.95 ms Tricuspid Valve TR Peak Rico.: 2.56 m/s RAP Estimate: 5.00 mmHg TR Peak Gr.: 26.29 mmHg PA Pressure: 31.00 mmHg Left Ventricle The left ventricle is normal size. There is normal left ventricular wall thickness. The left ventricular systolic function is normal. The left ventricular ejection fraction is within the normal range. LVEF is 60-65%. Mild diastolic dysfunction is present (impaired relaxation pattern). Right Ventricle The right ventricle is normal size. The right ventricular systolic function is normal. Atria The left atrium size is normal. The right atrium size is normal. Aortic Valve The aortic valve is normal in structure. No aortic regurgitation is present. There is no aortic valvular stenosis. Mitral Valve The mitral valve is normal in structure. Trace mitral regurgitation. No evidence of mitral valve stenosis. Tricuspid Valve The tricuspid valve is normal in structure. Trace to mild tricuspid regurgitation. PAP is estimated at 31 mmHg. Pulmonic Valve Pulmonic valve is not well visualized. Great Vessels The aortic root is normal in size. IVC is normal in size and collapses >50% with inspiration. [facility] [address] [place] [address] 2 D/M-MODE ECHOCARDIOGRAM Name: SEBASTIAN BOSS Maulik Room #: 461-P [facility] IN M.R.#: [id number] Admission: 11/07/18 Attend Phys: Fabricio Puente Discharge: Date of : 33 Date of Service: 11/10/18 1434 Report #: [id number] Pericardium There is no pericardial effusion. <Conclusion> The left ventricle is normal size. There is normal left ventricular wall thickness. The left ventricular systolic function is normal. Mild diastolic dysfunction is present (impaired relaxation pattern). The right ventricle is normal size. The left atrium size is normal. The aortic valve is normal in structure. Trace mitral regurgitation. Trace to mild tricuspid regurgitation. PAP is estimated at 31 mmHg. <ELECTRONICALLY SIGNED> By: Isma Pickard MD 11/10/18 1434 1434 1434 Isma Pickard MD /INF
--- NOTE | 2018-11-10 17:11 | NUR ---
PATIENT C/O DIZZINESS, LIGHTHEADEDNESS, & NAUSEA THIS MORNING. ORTHOSTATIC BP OBTAINED. FLUID BOLUS ADMINISTERED PER ORDERS. PATIENT NO LONGER SYMPTOMATIC AFTER BOLUS. BP IMPROVED POST BOLUS. PATIENT RECEIVED ECHO & CAROTID ULTRASOUND THIS SHIFT. FALL PRECAUTIONS IN PLACE, CALLS FOR ASSIST. UP TO BEDSIDE COMMODE WITH 1 PERSON ASSIST. PATIENT TO DISCHARGE TO [facility]N REHAB THIS SHIFT.
--- NOTE | 2018-11-11 03:13 | NUR ---
ASSUMED CARE OF PT AT 1900HRS. PT IS AOX4 AND LETS NEEDS BE KNOWN. PT HAD A COMFORTABLE NIGHT THIS SHIFT. NO NAUSEA OR PAIN REPORTED THIS SHIFT. PT WAS ABLE TO SLEEP PART OF THE SHIFT. NO S/S OF ACUTE DISTRESS. WILL CONTINUE TO MONITOR.
[2018-11-11 08:00] VITALS: BP 117/54
[2018-11-11] MEDS ORDERED: ANTIVERT25 MG PO (11:27)
[2018-11-11] MEDS ORDERED: MUCINEX600 MG PO (11:27)
--- NOTE | 2018-11-11 18:32 | NUR ---
VERY PLEASANT AND COOPERATIVE PATIENT. SAT UP IN CHAIR ALL MORNING. UP WITH MINIMUM ASSISTANCE W2ITH USER OF WALKER AND TOLERATED FAIR. WEAKNESS NOTED. AT APPROXIMATELY 1130 PATIENT STATING SHE HEARD A LOT OF SCREAMING, CURSING AND FIGHTING. THIS RN DID NOT HEAR THIS. POSSIBLE AUDITORY CONFUSION. FALL PRECAUTIONS IN PLACE. REPORT CALLED TO VICKI GALVIN ON 5N AT 1230. DISCHARGED TO 5N AT 1300 IN STABLE CONDITION.
--- NOTE | 2018-11-14 08:59 | D ---
[facility] [place] [address] DISCHARGE SUMMARY Name: KARYNSEBASTIAN Maulik Room #: 461-P [facility] IN M.R.#: [id number] Admission: 11/07/18 Attend Phys: Crystal Huggins Discharge: 11/11/18 Date of : 31 Report #: [id number] THIS REPORT FOR: //name// CC: Fabricio Copeland FINAL DIAGNOSES: 1. Acute benign vertigo. 2. Orthostatic hypotension. 3. Hypokalemia. 4. Hypertension. HOSPITAL COURSE: The patient was admitted with dizziness and nausea that she could not manage at home. She required IV nausea medication. Meclizine was added. CT of the head was unremarkable. Lab data initially was unremarkable. Followup labs showed hypokalemia and supplement was ordered. Her home medicines were continued. She then developed an unstable orthostatic hypotension. Blood pressure meds were discontinued and she received an IV fluid bolus. She was participating with physical therapy. Carotid Dopplers were unremarkable for significant stenosis. An echocardiogram was essentially normal with no valvular heart disease. Due to the orthostatic hypotension, her hospital stay was extended another day to monitor for stability. PHYSICAL EXAMINATION: On the day of discharge: GENERAL: She was awake and alert, sitting up in the bedside chair, eating breakfast and moved about in the room: VITAL SIGNS: Stable. LUNGS: Clear. HEART: Regular. ABDOMEN: Soft, normoactive bowel sounds. EXTREMITIES: No edema. DISPOSITION: She is being transferred to inpatient rehabilitation under the care of Dr. Barajas with regular diet, activity as tolerated, PT, OT. I will follow her stay there. She will continue Prozac, thyroid, vitamin D, Tylenol, meclizine for now. We will monitor her blood pressure and resume home medicines as warranted. <ELECTRONICALLY SIGNED> By: Angelo Dias MD 11/14/18 0859 [id number] 1532 Angelo Dias MD /nt
== END 2018-11-11 13:00 | DRG 312 ==
LOC: 4W 14:53
PROVIDERS: Internal Medicine Geriatric Medicine; ADMIT Internal Medicine
DX: I95.1 Orthostatic hypotension (principal); I16.0 Hypertensive urgency; I10 Essential (primary) hypertension; H81.10 Benign paroxysmal vertigo, unspecified ear; E87.6 Hypokalemia; R41.89 Other symptoms and signs involving cognitive functions and awareness; Z86.73 Personal history of transient ischemic attack (TIA), and cerebral infarction without residual deficits; Z79.899 Other long term (current) drug therapy
CPT/HCPCS: 10047

== ENCOUNTER 2018-11-10 13:47 | Inpatient (IN) | payer OTHER ==
[~2018-11-10] VITALS: Ht 167.6 cm; Wt 52.2 kg
--- NOTE | ~2018-11-10 | PLAN ---
[facility] [place] [address] REHAB UNIT PLAN OF CARE Name: AUGUSTMARTINEZSEBASTIAN Maulik Room #: 509-P ADM IN M.R.#: [id number] Admission: 11/11/18 Attend Phys: Angelo Barajas MD Discharge: Date of : 33 Report #: [id number] THIS REPORT FOR: //name// CC: Fabricio Barajas DATE OF SERVICE: 11/14/2018 PROGRESS NOTE AND OVERALL PLAN OF CARE SUBJECTIVE: The patient is seen back today in followup. She is in no distress. Last recorded temperature 98.2, pulse 76, respirations 16, blood pressure 155/76. She thinks that the dizziness has improved. She is alert. No focal calf swelling. Transfers have been contact guard assistance. She has ambulated up to 250 feet standby assistance with a front-wheeled walker. In occupational therapy, lower body dressing is min assist. In speech therapy, she has [id number] comprehensive deficits. ASSESSMENT: 1. Vertigo with gait instability. 2. Hypertensive urgency. 3. Orthostatic hypotension. 4. Recent syncopal episode with fall. 5. Headache and neck pain with vertigo symptoms. 6. History of cerebrovascular accident. 7. Memory and cognitive deficits. PLAN: The overall plan of care is based on the preadmission screen, post-admission physician evaluation and information garnered from therapy assessments. 1. Estimated length of stay is probably at least 7-10 days. 2. Medical prognosis is reasonably good. 3. Anticipated interventions includes the interdisciplinary acute inpatient rehabilitation program. 4. Anticipated functional outcomes would be for the patient to become modified independent with transfers, mobility, ADLs, cognition, communication, so she can hopefully return back to her prior living situation. 5. Discharge destination is back to the home setting where the patient lives in a house alone with her daughter recently staying with her. 6. Expected therapy by discipline includes PT, OT and speech 1 hour per day each five days a week throughout the duration of the acute inpatient rehabilitation stay. By: [id number] Angelo Barajas MD /nt
[2018-11-11 04:30] LABS: CALCIUM 9.2 mg/dL (8.5-10.1); CREATININE 1.3 mg/dL (0.6-1.0); POTASSIUM 4.1 mmol/L (3.5-5.1)
[2018-11-11 04:39] LABS: HEMATOCRIT 37.9 % (37.0-47.0); MCH 31.1 pg (26.0-34.0); MCHC 34.2 g/dL (28.0-37.0); MCV 90.9 fL (80.0-100.0); RBC 4.17 mil/uL (4.20-5.00); RDW 12.9 % (10.5-14.5); WBC 5.9 thou/uL (4.0-11.0)
[2018-11-11] MEDS ORDERED: MUCINEX600 MG PO (11:27)
[2018-11-11] MEDS ORDERED: ANTIVERT25 MG PO (11:27)
[2018-11-11 19:15] VITALS: BP 128/44
--- NOTE | 2018-11-12 03:04 | NUR ---
assumed care at approx 1900 evening 11/11. pt sitting up in recliner at change of shift. pt alert and oriented x4, pleasant and cooperative. pt up to bathroom with 1 assist with walker tolerating well. pt took hs meds with water tolerating well. pt appears to be sleeping soundly with hourly rounding checks. bed alarm on and call light in reach. will continue to monitor.
[2018-11-12 08:00] VITALS: BP 144/63
[2018-11-12 19:30] VITALS: BP 170/75
--- NOTE | 2018-11-12 20:55 | NUR ---
ASSUMED CARE OF PT AT 0715. PT IS A&OX4 AND VITAL SIGNS ARE STABLE. PHYSICAL THERAPY HERACLIO WORKED WITH PT AND REPORTED CHANGES OF APPROX. 30MMHG SYSTOLIC WHEN CHANGING POSITIONS ACCOMPANIED BY HEADACHES AND NECK PAIN. PT AND FAMILY ASKED THIS NURSE FREQUENTLY ABOUT DISCHARGE PLAN AND HER CARE PLAN. NURSE TALKED AT LENGTH ABOUT WEEKLY TEAM MEETING AND ABOUT HER CARE PLAN AND GOALS. PT STATES THAT SHE IS PLEASED WITH CARE PLAN AND GOALS. FALL PREACAUTIONS IN PLACE AND NURSING WILL CONTINUE TO MONITOR.
--- NOTE | 2018-11-13 01:57 | NUR ---
PATIENT ASSESSED AND IS ALERT X 4. SKIN WARM AND DRY. RESP EVEN AND UNLABORED. VERY FRAIL LOOKING. UP WITH 1 PERSON ASSIST WITH WALKER AND GAIT BELT WALKS TO BATHROOM AND VOIDS WELL. DENIES ANY VERTIGO. ON ROOM AIR. NO IV SITE. TAKES TYLENOL FOR NECK PAIN WITH GOOD RELEIF. TAKING DIET WELL. PATIENT TURNS SELF IN BED. CONT PLAN OF CARE.
[2018-11-13 08:00] VITALS: BP 131/59
--- NOTE | 2018-11-13 11:25 | NUR ---
ASSUMED CARE AT 0700, SHIFT ASSESSMENT DONE, MEDS GIVEN, VSS. DENIES PAIN, NAUSEA, VOMITING. UP TO THE BATHROOM WITH STANDBY ASSIST. WILL CONTINUE TO ASSESS AND ASSIST WITH ADLs NEEDED.
--- NOTE | 2018-11-13 13:46 | NUR ---
ASSUMED CARE OF PT MIDSHIFT. A&0X4, UP WITH SBA AND WALKER, ENCOURAGED PT TO USE CALL LIGHT FOR ANY NEEDS. NONE AT THE TIME I INTRO'D SELF AND REMINDED HER HOW TO USE CALL LIGHT/TELE/NURSE BUTTON. NO PAIN AT THIS TIME, WILL CONTINUE TO MONITOR
[2018-11-13 20:07] VITALS: BP 155/76
--- NOTE | 2018-11-14 05:02 | NUR ---
ASSUMED PT CARE AROUND 1900. A&OX4. C/O CHRONIC NECK PAIN. TYLENOL GIVEN. PT SLEPT MOST OF THE NIGHT. RESP EVEN AND UNLABORED. CALLS OUT APPROPRIATLY. UP W/ ASSIST AND A WALKER TO BTR. TOLERATED WELL. FALL PRECAUTIONS IN PLACE. PROGRESSING TOWARD POC GOALS. WILL CONTINUE TO MONITOR FURTHER.
[2018-11-14 07:35] VITALS: BP 182/69
[2018-11-14 08:00] VITALS: BP 186/69
[2018-11-14 10:14] VITALS: BP 150/67
--- NOTE | 2018-11-14 10:54 | NUR ---
ASSUMED CARE OF PT AT 0715. REPORTS SLEPT FAIR LAST NIGHT. PT IS A&OX4 ABLE TO VOICE HER OWN NEEDS. FORGETFUL AT TIME. B/P 186/69, HR 75. DENIES HYPERTENSION SYMPTOMS. UP AND WORKED WITH PHYSICAL THERAPIST. DENIES PAIN, N/V, SOB. RECHECK B/P 150/67 HR 90. PT HAS HX OF SYNCOPE AND FALL. CALLED TO NOTIFY DR. EPSTEIN ABOUT PT'S HIGH B/P, STILL WAIT DOCTOR TO CALL BACK. PT SAID SHE STILL FEELS WEAK AND NEEDS MORE THERAPY. PT STATES THAT SHE IS PLEASED WITH CARE PLAN AND GOALS. OFFERED SUPPORTIVE CARE. PT RECEIVED HOLY COMMUNION THIS AM. RESTING IN RECLINER FOR NEXT THERAPY. DENIES NEEDS OR CONCERN AT THIS MOMENT. FALL PREACAUTIONS IN PLACE AND NURSING WILL CONTINUE TO MONITOR.
--- NOTE | 2018-11-14 12:36 | NUR ---
CM UNABLE TO VISIT WITH PT RT SHE HAVING LUNCH AND HAS A VISITOR. WILL CONT FOLLOWING NEEDED FOR DC NEEDS.
--- NOTE | 2018-11-14 13:54 | NUR ---
Nutrition: pt admit with gait instability due to vertigo, HTN urgency. Consulted due to poor intake. Pt reports she eats well. 75-100% of meals is documented. No weight loss. Knows how to order meals. Low risk.
[2018-11-14 19:50] VITALS: BP 128/44
--- NOTE | 2018-11-15 04:37 | NUR ---
PATIENT ALERT AND ORIENTED X4. C/O PAIN IN NECK, TYLENOL GIVEN, NO BM FOR SEVERAL DAYS. MED GIVEN WITH NO RESULTS. SLEPT MOST OF NIGHT.
--- NOTE | 2018-11-15 10:05 | NUR ---
ASSUMED CARE OF PT AT 0715. REPORTS DIDN'T SLEEP LAST NIGHT. PT IS A&OX4 ABLE TO VOICE HER OWN NEEDS. DENIES NECK PAIN AT THIS MOMENT. FORGETFUL AT TIME. B/P 129/44, HELD LISINOPRIL THIS AM AND WILL NOTIFY DR. SANTIAGO FOR PARAMETER. UP AND WORKED WITH PHYSICAL THERAPIST. DENIES PAIN, N/V, SOB. OFFERED SUPPORTIVE CARE. TALKED TO DOCTOR PAMELA AND NOTIFIED HIM THAT PT WOULD LIKE TO TAKE SLEEPING AID. COLACE DAILY AND REQUESTS FOR PARAMETER ON LISINOPRIL. WILL GIVE COLACE PRN. FALL PREACAUTIONS IN PLACE AND NURSING WILL CONTINUE TO MONITOR. PT IS WORKING WITH PHYSICAL THERAPIST AT [facility].
[2018-11-15 10:21] VITALS: BP 129/44
--- NOTE | 2018-11-15 13:26 | NUR ---
team meeting, recommendation: dc , outpt therapy (st, pt). no dme.
--- NOTE | 2018-11-15 16:56 | H ---
[facility] [place] [address] HISTORY AND PHYSICAL Name: SEBASTIAN BOSS Maulik Room #: 501-A [facility] IN M.R.#: [id number] Admission: 11/11/18 Attend Phys: Angelo Barajas MD Discharge: Date of : 33 Report #: [id number] THIS REPORT FOR: //name// CC: Fabricio Barajas DATE OF SERVICE: 11/10/2018 HISTORY OF PRESENT ILLNESS: This is an 83-year-old female who was initially admitted on 11/02/2018 after an apparent syncopal episode with fall and was noted to have hypertensive urgency. She discharged the day after 11/03/2018 and was at home with her daughter. She ended up coming back to the hospital on 11/07/2018 with complaints of dizziness, headache, nausea. She was diagnosed with vertigo and was found to have some orthostatic hypotension. Medications were adjusted by her primary care doctor. Blood pressure is now stable. Her dizziness is improved, but she continues to have functional mobility deficits. She no longer has nausea and is able to tolerate therapy. We are now admitting the patient to acute inpatient rehabilitation for physical, occupational and speech therapies prior to returning back home. PAST MEDICAL HISTORY: Hypertension, history of CVA. HABITS: Nonsmoker, no illicit drug use, no alcohol use. ALLERGIES: No known drug allergies. CURRENT MEDICATIONS: Colace 100 mg twice a day p.r.n., meclizine 12.5 mg q.8 hours, Tylenol 650 q.8 hours, Mucinex 600 mg twice a day, trazodone 50 mg at bedtime p.r.n., Zofran 4 mg q.6 hours p.r.n. and magnesium 10 mL daily p.r.n. SOCIAL HISTORY: The patient lives in a house, 2 steps to enter, 13 steps inside. She had been living alone, but most recently, her daughter from [place] has been staying with her. Prior level, she was independent with all IADLs and ADLs. She no longer drives. Prior to 2 weeks ago, she utilized no gait aid, in the last 2 weeks she has been using a single-point cane. The patient does have a history of falls. REVIEW OF SYSTEMS: The patient currently has no headache or dizziness. She denies blurry vision. She denies cough, shortness of air, chest pain. She denies nausea, vomiting, abdominal pain or constipation. She is tolerating her regular diet. She denies any other acute pains. She reports chronic arthritic pains in her back and legs, age-related. Remainder of 14-point review of systems is negative except as listed in HPI. PHYSICAL EXAMINATION: VITAL SIGNS: 117/54, respirations 20, pulse is 68, temperature 98.0. She is [address] [address] HISTORY AND PHYSICAL Name: SEBASTIAN BOSS Room #: 501-A [facility] IN [facility].#: [id number] Admission: 11/11/18 Attend Phys: Angelo Barajas MD Discharge: Date of : 33 Report #: [id number] 97% O2 on room air. GENERAL: She is awake, alert. She is oriented x 3. She is a poor historian, but is able to recall her hospital stay. She is in no acute distress. HEAD: Head is normocephalic. EYES: EOMs are intact. No icterus. ENT: No sinus tenderness, no pharyngitis, no rhinorrhea. NECK: No lymphadenopathy. CARDIAC: Regular rate and rhythm, S1, S2. CHEST: Lungs are clear to auscultation bilaterally, with no crackles, no wheeze. ABDOMEN: Bowel sounds are positive. Soft, nontender, nondistended. GENITOURINARY: No CVA tenderness. EXTREMITIES: Functional range of motion of bilateral upper extremities. Upper extremity strength is approximately 4/5. Functional range of motion of the lower extremities with no calf swelling or tenderness to palpation. She has a negative Homans sign. She has no foot drop. Able to lift lower extremities antigravity. Toileting is min assist. Sit to stand is min assist. She is unable to maintain her balance with eyes closed in the standing position. SKIN: Few scattered bruising. NEUROLOGIC: Cranial nerves 2-12 grossly intact. Some mild lateral nystagmus. PSYCHIATRIC: Pleasant affect. ASSESSMENT: 1. Vertigo with gait instability. 2. Hypertensive urgency, now controlled. 3. Orthostatic hypotension. 4. Recent syncopal episode with fall. 5. Headache and neck pain with vertigo symptoms. 6. History of cerebrovascular accident. 7. Memory and cognitive deficits. PLAN: The patient is admitted to acute inpatient rehabilitation for physical, occupational therapies. We will also have a speech therapy cognition evaluation. Dr. Dias will continue to follow for any acute medical conditions. She will have a Neuropsychology evaluation by Dr. Young. She will have a team conference next week on Wednesday. Social workers to follow for discharge planning needs. Please see extensive orders. The patient is on orthostatic precautions and fall precautions with bed and chair alarms. <ELECTRONICALLY SIGNED> By: SARIKA Chavez 11/15/18 1656 1158 1222 SARIKA Chavez /nt
[2018-11-15 19:54] VITALS: BP 152/54
--- NOTE | 2018-11-16 05:03 | NUR ---
ASSESSMENT: PT REMAIN ALERT AND ORIENT TIMESFOUR. UP TO BR WITH SBA. VSS, AFEBRILE. TYLENOL GIVEN WITH GOOD RESULTS. MOM GIVEN WITH NO RESULTS THUS FAR. PT REMAINED SAFE AND USED CALL LIGHT APPROPRIATELY. GOOD PROGRESS TOWARDS DC GOALS, WILL CONTINUE TO MONITOR.
[2018-11-16 07:10] VITALS: BP 167/63
[2018-11-16 08:14] VITALS: BP 167/63
--- NOTE | 2018-11-16 12:34 | NUR ---
Faxed outpatient therapy orders to [facility] scheduling.
[2018-11-16 18:57] VITALS: BP 150/63
--- NOTE | 2018-11-16 20:05 | NUR ---
ASSUMED CARE OF PT AT 0715. REPORTS DIDN'T SLEEP LAST NIGHT EVEN SHE TOOK MELATONIN 5MG, SHE SAID IT DOESN'T HELP MUCH. PT IS A&OX4 . CALLED OUT FOR HER MEDS PER ST. FORGETFUL AT TIME. B/P 167/63, HR 66 LISINOPRIL GIVEN. REASSESSMENT PER CHART. BS HYPOACTIVE, GAVE COLACE SCHEDULE LAST BM WAS [address] SANTIAGO FOR MIRALAX AND BISACODYL SUPPOSITORY. RECEIVED ORDER FOR MIRALAX, GAVE MIRALAX WITH WARM APPLE JUICE. WILL ASK NIGHT NURSE TO CONTINUE TO MONITOR. DENIES PAIN, N/V, SOB BUT C/O LIGHT HEADACHE AND STILL HAS SOME DIZZINESS AT THE END OF THE SHIFT. GAVE REPORT TO NIGHT NURSE TO ASK DR. SANTIAGO HELPS PT'S DIZZINESS. OFFERED SUPPORTIVE CARE. PT IS IN GOOD SPIRIT AND EXCITED TO BE M.I TOMORROW. ENJOYING HER APARTMENT AND APPRECIATE CARE FROM STAFF. FALL PRECAUTIONS IN PLACE AND CHECKED FREQUENTLY FOR NEEDS AND SAFETY. PT CALLS APPROPRIATELY FOR HELP AND PARTICIPATES WELL WITH THERAPISTS. WILL CONTINUE TO MONITOR.
--- NOTE | 2018-11-17 06:28 | NUR ---
ALERT AND ORIENTED.UP WITH SBA. SWALLOWS MEDS OK. ROOM AIR. STILL WITH SOME DIZZINESS. NOT HAD A BM-TOOK SOME MIRALAX, PRUNE JUICE AND PEPPERMINT TEA-WILL SEE IF NEEDS MORE LAXATIVES TODAY.
[2018-11-17 07:40] VITALS: BP 151/70
[2018-11-17] MEDS ORDERED: LISINOPRIL10 MG PO (10:05)
--- NOTE | 2018-11-17 11:28 | NUR ---
ASSUMED CARE AT 0700. PATIENT IS ALERT AND ORIENTED X4. PATIENT CAMERON'S, CAR WORKER HELPER ARE EQUAL . LUNGS ARE CLEAR. ABD IS SOFT AND ROUND. NO BM FOR 5 DAY. MOM AND PRUNE JUICE GIVEN TO PATIENT. PATIENT IS MOD/I IN ROOM WITHOUT DEVICES. PATIENT HAD X-LARGE BM, FORMED. UP IN CHAIR FOR MEALS. FALL AND SAFETY PROTOCOLS IN PLACE. DENIES ANY PAIN. CONTINUES TO PROGRESS TOWARDS D/C GOALS. PLAN FOR D/C TO HOME IN A.M. WILL CONTINUE TO MONITER.
[2018-11-17 21:05] VITALS: BP 163/80
--- NOTE | 2018-11-18 03:46 | NUR ---
ASSESSMENT: PT REMAIN ALERT AND ORIENT TIMES FOUR. UP AD AUGUSTINA, REMAINED SAFE. VSS, AFEBRILE. PT IS GOING TO BE DC'D TODAY AND IS LOOKING FORWARD TO GOING HOME. C/O GENERALIZED PAIN, TYLENOL GIVEN WITH GOOD RELIEF. GOOD PROGRESS TOWARDS DC GOALS, WILL CONTINUE TO MONITOR.
[2018-11-18 07:30] VITALS: BP 158/71
--- NOTE | 2018-11-18 11:02 | H ---
[facility] [place] [address] HISTORY AND PHYSICAL Name: SEBASTIAN BOSS Room #: 501-A [facility] IN ..#: [id number] Admission: 11/11/18 Attend Phys: Angelo Barajas MD Discharge: Date of : 33 Report #: [id number] THIS REPORT FOR: //name// CC: Fabricio Barajas HISTORY AND PHYSICAL AND POSTADMISSION PHYSICIAN EVALUATION HISTORY OF PRESENT ILLNESS: The patient is an 83-year-old female who was originally admitted after a syncopal episode and was noted to have hypertensive urgency. Please see the full history and physical as dictated. The patient has now been admitted for acute in-hospital inpatient rehabilitation. Last recorded temperature is 97.9, pulse 72, respirations 18, blood pressure 144/63. She does have some decreased memory and decreased cognition noted by speech therapy. Transfers have been min assist with gait min assist short distances with a walker. She feels that the dizziness is improved. PHYSICAL EXAMINATION: CHEST: Clear. CARDIAC: Regular rate and rhythm. EXTREMITIES: EOMs full. No nystagmus. Upper extremity strength is 4/5. Lower extremity was 4-/5. She does have difficulty maintaining her balance with eyes closed. ASSESSMENT: 1. Vertigo with gait instability. 2. Hypertensive urgency. 3. Orthostatic hypotension. 4. Recent syncopal episode with fall. 5. Headache and neck pain with vertigo symptoms. 6. History of cerebrovascular accident. 7. Memory and cognitive deficits. PLAN: From a postadmission physician evaluation perspective, there are no relevant changes since the preadmission screening. Please see the history and physical and the previous and current functional status. Initial plan of care involves the interdisciplinary acute inpatient rehabilitation program with goal of maximizing her functional independence, so she can hopefully return back to her prior living situation. Prognosis is reasonably good with estimated length of stay probably at least 7-10 days. From a postadmission physician evaluation perspective, there are no relevant changes since the preadmission screening. Again, please see the review of prior and current medical and functional conditions and comorbidities. As far as potential barriers, the patient does have multiple medical comorbidities as noted above and her decreased functional status. The Internal Medicine physician group will be involved as well as [place] [phone] HISTORY AND PHYSICAL Name: SEBASTIAN BOSS Maulik Room #: 501-A [facility] IN [facility]#: [id number] Admission: 11/11/18 Attend Phys: Angelo Barajas MD Discharge: Date of : 33 Report #: [id number] neuropsychology and the interdisciplinary acute inpatient rehabilitation team to try to maximize her functional independence. <ELECTRONICALLY SIGNED> By: Angelo Barajas MD 11/18/18 1102 1312 1351 Angelo Barajas MD /nt
[2018-11-18 13:20] VITALS: BP 153/71
--- NOTE | 2018-11-18 14:37 | NUR ---
PT ALERT AND ORIENTED TIMES FOUR, VSS. PT DENEIS PAIN/SOA. PT UP AMBULATING WITH STEADY GAIT. PT TOLERATES MEDS AND MEALS. PLANS FOR DISCHARGE TODAY. WILL CONTINUE TO MONITOR
== END 2018-11-18 14:52 | disposition home health service (06) | DRG 93 ==
PROVIDERS: Nurse Practitioner Family; ADMIT Physical Medicine & Rehabilitation
DX: R26.81 Unsteadiness on feet (principal); R42 Dizziness and giddiness; I16.0 Hypertensive urgency; I95.1 Orthostatic hypotension; Z86.73 Personal history of transient ischemic attack (TIA), and cerebral infarction without residual deficits; Z79.899 Other long term (current) drug therapy; Z60.2 Problems related to living alone; R41.89 Other symptoms and signs involving cognitive functions and awareness; R51 Headache; F41.9 Anxiety disorder, unspecified
CPT/HCPCS: 10112

== ENCOUNTER 2018-12-02 11:58 | Emergency (ER) | payer OTHER ==
[~2018-12-02] VITALS: Ht 162.6 cm; Wt 53.5 kg
[~2018-12-02 11:58] MED LIST changes: +ANTIVERT25 MG PO; +LISINOPRIL10 MG PO; +MUCINEX600 MG PO
[2018-12-02 12:18] LABS: URINE BILIRUBIN NEGATIVE (Negative); URINE BLOOD 2+ (Negative); URINE CLARITY CLEAR; URINE COLOR YELLOW; URINE GLUCOSE-RANDOM* NEGATIVE (Negative); URINE KETONES NEGATIVE (Negative); URINE LEUKOCYTES 1+ (Negative); URINE NITRITE NEGATIVE (Negative); URINE PROTEIN (DIPSTICK) NEGATIVE (Negative); URINE SPECIFIC GRAVITY <= 1.005 (1.005-1.035); URINE UROBILINOGEN 0.2 E.U./dl (0.2-1.0)
[2018-12-02 12:28] LABS: CASTS None Seen /LPF (None Seen); CRYSTALS None Seen /LPF (None Seen); SQUAMOUS 0-3 Few /LPF (0-3); URINE RBC 3-10 Few /HPF (0-2); URINE WBC 0-5 Rare /HPF (0-5)
[2018-12-02 12:29] LABS: BACTERIA None Seen /HPF (None Seen)
[2018-12-02 12:39] LABS: BASOPHILS 0.7 % (0.0-2.0); EOSINOPHILS 1.5 % (0.0-3.0); HEMOGLOBIN 13.4 gm/dL (12.0-15.0); LYMPHOCYTES 30.4 % (24.0-44.0); MCH 30.8 pg (26.0-34.0); MCHC 33.5 g/dL (28.0-37.0); MCV 91.7 fL (80.0-100.0); MONOCYTES 9.1 % (1.0-8.0); PLATELET COUNT 249 thou/uL (150-400); POLYS 58.3 % (36.0-66.0); RBC 4.36 mil/uL (4.20-5.00); RDW 12.8 % (10.5-14.5); WBC 5.1 thou/uL (4.0-11.0)
[2018-12-02 12:46] LABS: CALCIUM 9.8 mg/dL (8.5-10.1); CREATININE 0.9 mg/dL (0.6-1.0); POTASSIUM 4.5 mmol/L (3.5-5.1)
[2018-12-02 12:53] LABS: TOTAL PROTEIN 7.8 g/dL (6.4-8.2)
[2018-12-02 15:15] VITALS: BP 168/74
--- NOTE | 2018-12-04 14:07 | EKG ---
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: JUANY : 1935 Requested By: Milton Frederick Order Number: [id number] MD: Leonid Mcconnell Measurements Intervals [place] Rate: 73 P: 63 RI: 162 QRS: 62 QRSD: 79 T: 69 QT: 401 QTc: 442 Interpretive Statements Sinus rhythm Normal tracing Compared to ECG 06/15/2017 12:20:04 Sinus bradycardia no longer present Electronically Signed On 12-04-2018 14:07:07 CDT by Leonid Mcconnell [email or web address] ��������������������������������������������� <ELECTRONICALLY SIGNED> ���������������������������������������� By: Leonid Mcconnell MD, [facility] ��������������������������������������������� 12/04/18 1407 1203 Leonid Mcconnell MD, FACC /EPI
== END 2018-12-02 15:15 | disposition home or self-care (01) ==
LOC: ER 11:58
PROVIDERS: Emergency Medicine
DX: I10 Essential (primary) hypertension (principal); R42 Dizziness and giddiness; Z86.73 Personal history of transient ischemic attack (TIA), and cerebral infarction without residual deficits; Z90.49 Acquired absence of other specified parts of digestive tract; Z98.890 Other specified postprocedural states

== ENCOUNTER → 2019-07-04 | Outpatient (CLI) | payer OTHER ==
[~2019-07-04] MED LIST changes: +ARICEPT 5 MG TAB5 MG PO; +ASA81BEC PO; +BENICAR40 MG PO; +CALCIUM 600 +1 EAC2 PO; +CATAPRES0.1 MG PO; +CENTRUM SILVER1 EAC6 PO; +LEVOTHYROXINE75 MCG PO; +MECLIZINE HCL12.5 MG PO; +ROSUVASTATIN CA10 MG PO
== END ==
LOC: SJCVCIMAG 11:03 → SJCVC 11:03
DX: I08.1 Rheumatic disorders of both mitral and tricuspid valves (principal); I11.9 Hypertensive heart disease without heart failure; E78.00 Pure hypercholesterolemia, unspecified; I63.30 Cerebral infarction due to thrombosis of unspecified cerebral artery; I65.23 Occlusion and stenosis of bilateral carotid arteries; I70.1 Atherosclerosis of renal artery; F41.9 Anxiety disorder, unspecified; Z79.82 Long term (current) use of aspirin; Z79.899 Other long term (current) drug therapy

== ENCOUNTER 2019-07-06 10:28 | Observation (INO) | payer OTHER ==
[~2019-07-06] VITALS: Ht 162.6 cm; Wt 53.1 kg
[2019-07-06] VITALS (13 sets, daily range): BP systolic 108–160; BP diastolic 44–87
[~2019-07-06 10:28] MED LIST changes: -ARICEPT 5 MG TAB5 MG PO; -ASA81BEC PO; -BENICAR40 MG PO; -CALCIUM 600 +1 EAC2 PO; -CATAPRES0.1 MG PO; -CENTRUM SILVER1 EAC6 PO; -LEVOTHYROXINE75 MCG PO; -MECLIZINE HCL12.5 MG PO; -ROSUVASTATIN CA10 MG PO
[2019-07-06 11:16] LABS: HEMOGLOBIN 13.7 gm/dL (12.0-15.0); MCH 30.5 pg (26.0-34.0); MCHC 34.2 g/dL (28.0-37.0); MCV 89.2 fL (80.0-100.0); RBC 4.48 mil/uL (4.20-5.00); RDW 13.5 % (10.5-14.5); WBC 6.9 thou/uL (4.0-11.0)
[2019-07-06] MEDS ORDERED: NORVASC5 MG PO (11:24)
[2019-07-06] MEDS ORDERED: ASA81BEC PO (11:24)
[2019-07-06] MEDS ORDERED: CATAPRES0.1 MG PO (11:26)
[2019-07-06] MEDS ORDERED: ROSUVASTATIN CA10 MG PO (11:27)
[2019-07-06] MEDS ORDERED: LEVOTHYROXINE75 MCG PO (11:29)
[2019-07-06] MEDS ORDERED: ARICEPT 5 MG TAB5 MG PO (11:29)
[2019-07-06] MEDS ORDERED: BENICAR40 MG PO (11:30)
[2019-07-06 11:31] LABS: CALCIUM 9.6 mg/dL (8.5-10.1); POTASSIUM 4.4 mmol/L (3.5-5.1)
[2019-07-06] MEDS ORDERED: MECLIZINE HCL12.5 MG PO (11:32)
[2019-07-06] MEDS ORDERED: CENTRUM SILVER1 EAC6 PO (11:33)
[2019-07-06] MEDS ORDERED: CALCIUM 600 +1 EAC2 PO (11:34)
--- NOTE | 2019-07-06 12:59 | EKG ---
[facility] [place] Becki Garland [facility] [place] [address] ELECTROCARDIOGRAM REPORT Name: SEBASTIAN BOSS Room #: [facility].#: [id number] Admission: 07/06/19 Attend Phys: Erasmo Alfonso MD, Discharge: Date of : 33 Report #: [id number] THIS REPORT FOR: cc: Fabricio Copeland MD, Christopher B. MD Couchonnal, Luis F. MD ~ THIS REPORT FOR: //name// [facility] [place] Test Date: 2019-07-06 Test Time: 11:14:28 Pat Name: SEBASTIAN BOSS Department: Room: Gender: F Application Systems Architect: Estiven AGUIRRE : 1935 Requested By: Erasmo Alfonso Order Number: [id number] MD: Reji Kang Measurements Intervals [place] Rate: 63 P: 78 NV: 165 QRS: 63 QRSD: 79 T: 61 QT: 436 QTc: 447 Interpretive Statements Sinus rhythm Compared to ECG 12/02/2018 12:03:10 No significant changes Electronically Signed On 07-06-2019 12:58:16 CDT by Reji Kang [email or web address] <ELECTRONICALLY SIGNED> By: Reji Kang MD 07/06/19 1258 1114 1114 Reji Kang MD /EPI
--- NOTE | 2019-07-06 18:12 | NUR ---
[age] OLD FEMALE ADMITTED TO CCU ROOM 208 AFTER CARDIAC CATH TODAY. RIGHT GROIN CATH SITE SOFT, DRESSING CLEAN DRY AND INTACT. PT VSS, IVF INFUSING PER ORDER. PT DENIES PAIN/SOA. PT DID HAVE APPROXIMATELY 100CC OF CLEAR EMESIS ON ADMIT TO THE NT. PRN MEDICATION GIVEN. PT DID TOERATE ICE CREAM THIS EVENING. WILL CONTINUE TO MONITOR
[2019-07-07 00:35] VITALS: BP 129/69
[2019-07-07 04:45] VITALS: BP 121/55
[2019-07-07 05:07] LABS: ALBUMIN 3.4 g/dL (3.4-5.0); ANION GAP 8 mmol/L (7-16); BUN 18 mg/dL (7-18); CALCIUM 8.5 mg/dL (8.5-10.1); CHLORIDE 105 mmol/L (98-107); CO2 27 mmol/L (21-32); CREATININE 0.8 mg/dL (0.6-1.0); GLUCOSE 85 mg/dL (74-106); POTASSIUM 3.7 mmol/L (3.5-5.1); SGOT 18 U/L (15-37); SGPT 15 U/L (30-65); SODIUM 140 mmol/L (136-145); TOTAL PROTEIN 6.4 g/dL (6.4-8.2); TROPONIN-I <0.06 ng/mL (<0.06)
--- NOTE | 2019-07-07 05:10 | NUR ---
ASSESSMENTS CHARTED, MEDS GIVEN CHARTED. PATIENT ON BEDREST AT START OF SHIFT FROM CATH PROCEDURE DURING DAY. OFF BEDREST AT 2014. RIGHT GROIN MAINTAINS BEING DRY, AND SOFT. SINUS ELIGIO THROUGH SINUS RHYTHM DURING SHIFT. LUNGS ARE CLEAR ON ROOM AIR. PATIENT WAS UNSTEADY WHEN SHE GOT OFF BEDREST. REQUESTED A WALKER TO HELP WITH AMBULATING TO THE BATHROOM. C/O SORE THROAT DURING SHIFT. LOZENGERS HELP RELIEVE PAIN. PATIENT ABLE TO SLEEP DURING SHIFT. FALL PRECAUTIONS IN PLACE DURING SHIFT.
[2019-07-07 05:20] LABS: HEMATOCRIT 36.7 % (37.0-47.0); HEMOGLOBIN 12.5 gm/dL (12.0-15.0); MCH 30.7 pg (26.0-34.0); MCHC 34.1 g/dL (28.0-37.0); MCV 89.8 fL (80.0-100.0); RBC 4.09 mil/uL (4.20-5.00); RDW 12.8 % (10.5-14.5); WBC 6.8 thou/uL (4.0-11.0)
[2019-07-07] MEDS ORDERED: CLOPIDOGREL75 MG PO (07:26)
--- NOTE | 2019-07-07 07:51 | EKG ---
[facility] [place] [address] ELECTROCARDIOGRAM REPORT Name: SEBASTIAN BOSS Room #: 208-P [facility] M.R.#: [id number] Admission: 07/06/19 Attend Phys: Erasmo Alfonso MD, Discharge: Date of : 31 Report #: [id number] THIS REPORT FOR: cc: Fabricio Copeland MD, Christopher B. MD Lundgren,Leonid Boyd MD [facility] ~ THIS REPORT FOR: //name// [facility] Test Date: 2019-07-07 Test Time: 07:08:04 Pat Name: SEBASTIAN BOSS Department: Room: 208 P Gender: F Banking Paralegal: SHAUNA : 1935 Requested By: Anay Rendon Order Number: [id number] MD: Leonid Mcconnell Measurements Intervals [place] Rate: 59 P: 80 WV: 179 QRS: 75 QRSD: 85 T: 61 QT: 422 QTc: 418 Interpretive Statements Sinus bradycardia Compared to ECG 07/06/2019 11:14:28 No significant changes Electronically Signed On 07-07-2019 7:49:34 CDT by Leonid Mcconnell [email or web address] <ELECTRONICALLY SIGNED> By: Leonid Mcconnell MD, [facility] 07/07/19 0749 0708 Leonid Mcconnell MD, [facility] /EPI
[2019-07-07 08:17] VITALS: BP 117/60
[2019-07-07] MEDS ORDERED: BENICAR20 MG PO (09:53)
[2019-07-07 11:20] VITALS: BP 117/60
--- NOTE | 2019-07-07 12:25 | NUR ---
ASSUMED CARE OF PT AT SHIFT CHANGE. ASSESSMENTS CHARTED. MEDS GIVEN PER MAY. PT A&OX4, NO C/O PAIN. R GROIN SITE CDI, WITHOUT HEMATOMA. DISCHARGE ORDERS AND INSTRUCTIONS COMPLETE. TELE AND IV DC'D. TRANSPORTED VIA WHEELCHAIR TO WAITING DAUGHTER IN PERSONAL CAR.
--- NOTE | 2019-07-07 14:38 | NUR ---
PT CARE ASSUMED APPROX 1415. DISCHARGE COMPLETED WITH PT AND PREVIOUS NURSE. PT BELONGINGS IN HER POSSESSION. DENIES HAVING ANY NEEDS OR CONCERNS TO THIS NURSE. DENIES PAIN AND SOA. ESCORTED OFF UNIT VIA WHEELCHAIR WITH NURSING STAFF.
== END 2019-07-07 14:40 | disposition home or self-care (01) ==
LOC: CATH 10:28 → 2N 17:37
PROVIDERS: Nurse Practitioner Adult Health; ADMIT Internal Medicine Cardiovascular Disease
DX: I25.10 Atherosclerotic heart disease of native coronary artery without angina pectoris (principal); E78.5 Hyperlipidemia, unspecified; I10 Essential (primary) hypertension; Z86.73 Personal history of transient ischemic attack (TIA), and cerebral infarction without residual deficits

== ENCOUNTER → 2019-11-06 | Outpatient (CLI) | payer OTHER ==
[~2019-11-06] MED LIST changes: +ARICEPT 5 MG TAB5 MG PO; +ASA81BEC PO; +BENICAR20 MG PO; +BENICAR40 MG PO; +CALCIUM 600 +1 EAC2 PO; +CATAPRES0.1 MG PO; +CENTRUM SILVER1 EAC6 PO; +CLOPIDOGREL75 MG PO; +LEVOTHYROXINE75 MCG PO; +MECLIZINE HCL12.5 MG PO; +ROSUVASTATIN CA10 MG PO
== END ==
LOC: SJCVCIMAG 08:30
PROVIDERS: ATTEND Nuclear Medicine Nuclear Cardiology
DX: N13.30 Unspecified hydronephrosis (principal); I10 Essential (primary) hypertension; K55.1 Chronic vascular disorders of intestine; I70.1 Atherosclerosis of renal artery; I15.0 Renovascular hypertension; M31.0 Hypersensitivity angiitis; I25.10 Atherosclerotic heart disease of native coronary artery without angina pectoris; E78.00 Pure hypercholesterolemia, unspecified; Z79.899 Other long term (current) drug therapy; Z79.82 Long term (current) use of aspirin

== ENCOUNTER → 2020-01-08 | Outpatient (CLI) | payer OTHER ==
[~2020-01-08] MED LIST changes: +KEFLEX500 M1 PO; +OLMESARTAN MEDO40 MG PO
== END ==
LOC: SJCVC 15:06 → SJCVCIMAG 15:06
PROVIDERS: ATTEND Internal Medicine Cardiovascular Disease
DX: I10 Essential (primary) hypertension (principal); N13.30 Unspecified hydronephrosis; I25.10 Atherosclerotic heart disease of native coronary artery without angina pectoris; E78.00 Pure hypercholesterolemia, unspecified; I70.1 Atherosclerosis of renal artery; K55.1 Chronic vascular disorders of intestine; Z96.0 Presence of urogenital implants; Z79.899 Other long term (current) drug therapy; Z86.73 Personal history of transient ischemic attack (TIA), and cerebral infarction without residual deficits

== ENCOUNTER 2020-01-09 14:17 | Emergency (ER) | payer OTHER ==
[~2020-01-09] VITALS: Ht 162.6 cm; Wt 55.3 kg
[~2020-01-09 14:17] MED LIST changes: -KEFLEX500 M1 PO; -OLMESARTAN MEDO40 MG PO
[2020-01-09] MEDS ORDERED: OLMESARTAN MEDO40 MG PO (15:18)
[2020-01-09 15:41] LABS: HEMATOCRIT 39.4 % (37.0-47.0); HEMOGLOBIN 13.1 gm/dL (12.0-15.0); MCHC 33.3 g/dL (28.0-37.0); PLATELET COUNT 212 thou/uL (150-400); RBC 4.24 mil/uL (4.20-5.00); RDW 14.9 % (10.5-14.5); WBC 7.6 thou/uL (4.0-11.0)
[2020-01-09 15:51] LABS: CALCIUM 8.8 mg/dL (8.5-10.1); CREATININE 1.2 mg/dL (0.6-1.0); POTASSIUM 3.9 mmol/L (3.5-5.1)
[2020-01-09 15:57] LABS: ALBUMIN 3.9 g/dL (3.4-5.0); DIRECT BILIRUBIN 0.2 mg/dL (<0.1-0.2); TOTAL BILIRUBIN 1.4 mg/dL (0.2-1.0)
[2020-01-09 16:07] LABS: URINE BILIRUBIN NEGATIVE (Negative); URINE BLOOD TRACE (Negative); URINE CLARITY CLEAR; URINE COLOR YELLOW; URINE GLUCOSE-RANDOM* NEGATIVE (Negative); URINE KETONES NEGATIVE (Negative); URINE LEUKOCYTES-REFLEX 1+ (Negative); URINE NITRITE-REFLEX NEGATIVE (Negative); URINE PROTEIN (DIPSTICK) NEGATIVE (Negative); URINE SPECIFIC GRAVITY 1.025 (1.005-1.035); URINE UROBILINOGEN 0.2 E.U./dl (0.2-1.0)
[2020-01-09 16:10] LABS: ABSOLUTE NEUTROPHILS 4.3 thou/uL (1.4-8.2); PLATELET ESTIMATE NORMAL
[2020-01-09 16:20] LABS: URINE RBC None Seen /HPF (0-2); URINE WBC-REFLEX 0-5 Rare /HPF (0-5)
[2020-01-09 16:21] LABS: BACTERIA-REFLEX 1-9 Few /HPF (None Seen); CASTS None Seen /LPF (None Seen); CRYSTALS None Seen /LPF (None Seen); SQUAMOUS None Seen /LPF (0-3)
[2020-01-09] MEDS ORDERED: KEFLEX500 M1 PO (18:09)
[2020-01-09 18:22] VITALS: BP 181/78
--- NOTE | 2020-01-10 08:54 | EKG ---
[facility] [place] [address] ELECTROCARDIOGRAM REPORT Name: SEBASTIAN BOSS Room #: [facility]#: [id number] Admission: 01/09/20 Attend Phys: Discharge: 01/09/20 Date of : 33 Report #: [id number] THIS REPORT FOR: cc: Fabricio Copeland MD, Christopher B. MD Lundgren, Craig H. MD [facility] ~ THIS REPORT FOR: //name// [facility] ED Test Date: 2020-01-09 Test Time: 17:51:32 Pat Name: SEBASTIAN BOSS Department: Room: Gender: F Slat Basket Maker: [facility] : 1935 Requested By: Kristy Gomez Order Number: [id number] MD: Leonid Mcconnell Measurements Intervals [place] Rate: 73 P: 83 AL: 178 QRS: 68 QRSD: 74 T: 65 QT: 425 QTc: 469 Interpretive Statements Sinus rhythm Nonspecific ST segment abnormality Compared to ECG 07/07/2019 07:08:04 Sinus bradycardia no longer present Electronically Signed On 01-10-2020 8:54:00 CDT by Leonid Mcconnell [email or web address] <ELECTRONICALLY SIGNED> By: Leonid Mcconnell MD, FAC 01/10/20 0854 175 50 Leonid Mcconnell MD, [facility] /EPI
== END 2020-01-09 18:28 | disposition home or self-care (01) ==
LOC: ER 14:17
PROVIDERS: Emergency Medicine
DX: N39.0 Urinary tract infection, site not specified (principal); R53.1 Weakness; I10 Essential (primary) hypertension; Z90.49 Acquired absence of other specified parts of digestive tract; Z79.01 Long term (current) use of anticoagulants; Z79.899 Other long term (current) drug therapy; Z88.8 Allergy status to other drugs, medicaments and biological substances

== ENCOUNTER 2020-01-10 14:25 | Inpatient (IN) | payer OTHER ==
[~2020-01-10] VITALS: Ht 162.6 cm; Wt 56.7 kg
--- NOTE | ~2020-01-10 | HC ---
[facility] [place] [address] CONSULTATION Name: SEBASTIAN BOSS Room #: 440-P ADM IN M.R.#: [id number] Admission: 01/10/20 Attend Phys: Azam Louis MD Discharge: Date of : 31 Report #: [id number] THIS REPORT FOR: cc: Fabricio Copeland MD, Christopher B. MD Khosla, Parveen K. MD ~ DATE OF SERVICE: 01/11/2020 HISTORY OF PRESENT ILLNESS: This is an 84-year-old female patient who is a poor historian. She was evaluated by me because apparently her gait was abnormal and she had some dizziness. She has also postural hypotension. She is not complaining of dizziness that much. She says that her mentation is not good. She says this dizziness occurred when the medicine is adjusted and her hypertension medication has been adjusted recently. She said she had a stroke and I went back and reviewed the records in the computers and in fact, I saw this patient in 2018 with what looks like left subcortical stroke. She does not know how that stroke affected, but she did have problem with mentation at least stroke. My notes indicate that time, she was having difficulty with cognition even that time. REVIEW OF SYSTEMS: A 14-point review of system was carried out. She has some orthostatic hypotension. She had a CVA in 2018. She has a history of coronary artery disease. She has a history of renal artery stenosis. She also has a history of polymyalgia. She has a history of hypertension, hypercholesterolemia and hypothyroidism. She thinks her coordination is not very good. She thinks that since her last stroke, which was in the left cerebral hemisphere. That was a relevant 14-point review of system. PAST MEDICAL HISTORY: Positive for stroke. FAMILY HISTORY: Unremarkable. SOCIAL HISTORY: She says she does drink alcohol, but not excessively. PHYSICAL EXAMINATION: Indicate she is alert. She is responsive. Her speech is intact. She can tell me what month it is, but she could not tell me the date. She knew what hospital she was in. She knew the president, but could not tell me the one before. Cranial nerve examination 2-12 looks unremarkable. Strength, sensation, reflexes and tone looks symmetrical. She does [id number] reasonably well. I did not make her walk. We will ask physical therapy to make her walk. I did review their notes. I could not look at the fundus. She is a reasonably well-developed individual. She does not have any dysmorphic features of eyes, ears and face. Her vision and hearing looks adequate. There is no carotid bruit in this patient, both the plantar's looks [facility] [address] [place] [address] CONSULTATION Name: SEBASTIAN BOSS Maulik Room #: 440-P ADM IN M.R.#: [id number] Admission: 01/10/20 Attend Phys: Azam Louis MD Discharge: Date of : 31 Report #: [id number] withdrawal, but I cannot say that they are not upgoing. It is difficult to tell. She says she is very ticklish. She has no respiratory difficulty. Pulses are difficult to feel, but I think are palpable. Blood pressure is 142/54, pulse is 71, and temperature is 98.7. LABORATORY DATA: Indicated white count of 5.6. IMPRESSION: This patient's problem is going on for a long time because my notes indicated that even in 2018, she presented with same kind of problem. MRI of the brain looks unremarkable. We will talk to the physical therapist to see how her walking is tomorrow. If she is improved with treatment of orthostatic hypotension and blood pressure, then she may not need further workup. Otherwise, she may need spine workup and other workup. Dr. Cook will follow up this patient tomorrow and we will see how she does with physical therapy, especially with ambulation. Thank you very much for this referral. By: [id number] John Luz MD /nt
[~2020-01-10 14:25] MED LIST changes: +KEFLEX500 M1 PO; +OLMESARTAN MEDO40 MG PO
[2020-01-10 14:29] VITALS: BP 145/50
[2020-01-10 15:26] LABS: ABSOLUTE NEUTROPHILS 4.2 thou/uL (1.4-8.2); BASOPHILS 0.6 % (0.0-2.0); EOSINOPHILS 4.6 % (0.0-3.0); HEMATOCRIT 39.8 % (37.0-47.0); HEMOGLOBIN 13.3 gm/dL (12.0-15.0); LYMPHOCYTES 28.5 % (24.0-44.0); MCH 30.9 pg (26.0-34.0); MCHC 33.5 g/dL (28.0-37.0); MCV 92.3 fL (80.0-100.0); MONOCYTES 11.4 % (1.0-8.0); PLATELET COUNT 207 thou/uL (150-400); POLYS 54.9 % (36.0-66.0); RBC 4.32 mil/uL (4.20-5.00); RDW 14.6 % (10.5-14.5); WBC 7.7 thou/uL (4.0-11.0)
[2020-01-10 15:33] LABS: CALCIUM 9.4 mg/dL (8.5-10.1); CREATININE 1.1 mg/dL (0.6-1.0); POTASSIUM 3.8 mmol/L (3.5-5.1)
[2020-01-10 15:40] LABS: ALBUMIN 3.9 g/dL (3.4-5.0); TOTAL BILIRUBIN 1.4 mg/dL (0.2-1.0); TOTAL PROTEIN 7.2 g/dL (6.4-8.2)
[2020-01-10 17:38] VITALS: BP 157/70
[2020-01-10 17:39] VITALS: BP 157/70
[2020-01-10 17:51] VITALS: BP 142/70
[2020-01-10 18:10] LABS: TSH 0.178 uIU/mL (0.358-3.740)
[2020-01-10 19:54] VITALS: BP 148/74
--- NOTE | 2020-01-10 20:28 | NUR ---
PATIENT ADMITTED FROM ER WITH WEAKNESS AND DIZZINESS. PATIENT ALERT AND ORIENTED X 3 WITH PERIODS OF CONFUSION AND FORGETFULNESS. PATIENT DENIES PAIN BUT C/O HEADACHE, TYLENOL 650 MG PO GIVEN DURING ADMISSION. PATIENT HAS LEFT FOREARM IV NS STARTED AT 75CC/HR. ADMISSION COMPLETED, REPORT GIVEN JESSE/VICKI.
--- NOTE | 2020-01-11 03:10 | NUR ---
PATIENT ALERT AND ORIENTED X4. UP TO BATHROOM WITH ONE ASSIST. IVF INFUSING W/O COMPLICATION. PATIENT INSISTED ON KEEPING HER MEDICATION AND PURSE AT BEDSIDE. MEDS PLACED IN CLEAR PATIENTS BELONGING BAG AND PLACED IN HER BLACK DUFFLE BAG AT BEDSIDE. PATIENT STATED THAT SHE HAS NOT HAD A BM IN FOUR DAYS, HOWEVER, MIRALAX WHICH IS ON HER MAR WAS REFUSED. THIS NURSE RECEIVED AN ORDER FOR DUCOLAX PO WHICH WAS GIVEN. NO RESULTS AT TIME OF NOTE. ULTRA SOUND OF CAROTID ARTERIES WAS DONE DURING THE NIGHT AT BEDSIDE. NO C/O PAIN. PLACED SCD'S. PATIENT IS RESTING QUIETLY. WILL MONITOR.
[2020-01-11 04:24] VITALS: BP 135/58
[2020-01-11 05:44] LABS: HEMOGLOBIN 13.1 gm/dL (12.0-15.0); MCHC 33.5 g/dL (28.0-37.0); MCV 92.4 fL (80.0-100.0); PLATELET COUNT 193 thou/uL (150-400); RBC 4.22 mil/uL (4.20-5.00); RDW 14.6 % (10.5-14.5); WBC 5.6 thou/uL (4.0-11.0)
[2020-01-11 06:04] LABS: CALCIUM 8.8 mg/dL (8.5-10.1); MAGNESIUM 2.1 mg/dL (1.8-2.4); POTASSIUM 3.8 mmol/L (3.5-5.1)
[2020-01-11 07:39] LABS: ABSOLUTE NEUTROPHILS 2.6 thou/uL (1.4-8.2); PLATELET ESTIMATE NORMAL
--- NOTE | 2020-01-11 07:52 | EKG ---
[facility] [place] [address] ELECTROCARDIOGRAM REPORT Name: SEBASTIAN BOSS Room #: 440-P ADM IN M.R.#: [id number] Admission: 01/10/20 Attend Phys: Azam Louis MD Discharge: Date of : 31 Report #: [id number] THIS REPORT FOR: cc: Fabricio Copeland MD, Christopher B. 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 : 1935 Requested By: Christiano Davies Order Number: [id number] MD: Randall Caldwell Measurements Intervals [place] Rate: 68 P: 67 IL: 183 QRS: 63 QRSD: 73 T: 70 QT: 405 QTc: 431 Interpretive Statements Sinus rhythm Anteroseptal infarct, age indeterminate Compared to ECG 01/09/2020 17:51:32 Myocardial infarct finding now present ST (T wave) deviation no longer present Electronically Signed On 01-11-2020 7:52:12 CDT by Randall Caldwell [email or web address] <ELECTRONICALLY SIGNED> By: Randall Caldwell MD, FACC 01/11/20 0752 11 11 Randall Caldwell MD, FACC /EPI
[2020-01-11 08:25] VITALS: BP 145/61
--- NOTE | 2020-01-11 14:40 | NUR ---
ASSESSMENT: CM REVIEWED CHART AND SPOKE WITH PATIENT. PT WAS ADMITTED DUE TO DIZZINESS/WEAKNESS. PT IS FROM [facility]. PT REPORTS SHE NORMALLY AMBULATES INDEPENDENTLY. PT STATES SHE DOES NOT HAVE HH AND IS UNSURE IF SHE HAS HAD IT IN THE PAST. CM SPOKE WITH PATIENTS DAUGHTER MARIA WHO CONFIRMED INFORMATION. SHE REPORTS IF PATIENT NEEDS HH AT DISCHARGE THAT FACILITY NORMALLY USES [facility] AND THEY WOULD LIKE A REFERRAL SENT THERE. CM FAXED REFERRAL TO [facility]. PT IS STILL COMPLAINING OF DIZZINESS SO CONSULT FOR CARDIOLOGY AND NEUROLOGY WAS PLACED. CM WILL CONTINUE TO FOLLOW TO ASSIST NEEDED. PT WILL CONTINUE TO WORK WITH THERAPIES.
[2020-01-11 16:34] VITALS: BP 153/73
--- NOTE | 2020-01-11 19:23 | NUR ---
Assumed care of pt. at 0700. Pt. was calm and cooperative, but still complained of dizziness. Dr. Louis intially stated that he inteded to discharge her today. However, pt. stated that she felt unsafe leaving and after a cognitive evaluation and PT Dr. Louis decided she would staying for further evaluation. Pt. stated that she wanted an anti-acid for her constant belching and a sleeping medication. This was relayed to Dr. Louis over the phone, no orders given. Fall precautions in place.
[2020-01-11 19:37] VITALS: BP 142/54
--- NOTE | 2020-01-12 03:00 | NUR ---
ASSUMED PT CARE AROUND 1930. VSS. NO S/S ACUTE DISTRESS NOTED OR REPORTED AT THIS TIME. WILL CONT TO MONITOR FOR ANY CHANGES IN CONDITION.
[2020-01-12 07:45] VITALS: BP 177/83
[2020-01-12 11:26] VITALS: BP 177/83
--- NOTE | 2020-01-12 14:29 | NUR ---
ON-GOING ASSESSMENT: CM REVIEWED CHART AND SPOKE WITH PATIENT AND HER DAUGHTER MARIA. PT HAS ORDERS TO DISCHARGE TODAY BACK TO [facility] WITH [facility]. CM NOTIFIED SAPPHIRE AT [facility] OF DISCHARGE TODAY AND FAXED D/C ORDERS TO HIM AND CONFIRMED THEY RECEIVED IT. IT STATES THEY HAVE HER ON THE SCHEDULE FOR TOMORROW. CM ALSO CONTACTED [facility] AND ARRANGED TRANPORT FOR HER TO GET HOME PATIENTS DAUGHTER LIVES OUT OF STATE. COLLIN APPROVED WITH CM DIRECTOR. CASE CLOSED.
--- NOTE | 2020-01-12 14:31 | NUR ---
PT IS AOX3, VERY FORGETFUL. PT WILL NOT USE CALL LIGHT BEFORE AMBULATING. PT IS UP WALKING AROUND IN ROOM. DENIES PAIN AT THIS TIME. BP ELEVATED THIS MORNING, NEW ORDER FOR BP MED WAS RECEIVED. VSS. PT IS DISCHARGING BACK TO HER [facility]. FAMILY HAS BEEN UPDATED. VAN IS PICKING UP AT 1530. PT IV WAS D/C'D. BELONGINGS PACKED AND READY.
== END 2020-01-12 16:21 | disposition home health service (06) | DRG 682 ==
LOC: ER 14:25 → EROBS 16:47 → 4S 16:47
PROVIDERS: Emergency Medicine; Nurse Practitioner; ADMIT Hospitalist; ATTEND Hospitalist
DX: N17.9 Acute kidney failure, unspecified (principal); G93.41 Metabolic encephalopathy; K55.1 Chronic vascular disorders of intestine; I95.1 Orthostatic hypotension; I10 Essential (primary) hypertension; F41.9 Anxiety disorder, unspecified; E78.5 Hyperlipidemia, unspecified; E86.0 Dehydration; I25.10 Atherosclerotic heart disease of native coronary artery without angina pectoris; I73.9 Peripheral vascular disease, unspecified; M35.3 Polymyalgia rheumatica; Z66 Do not resuscitate; Z60.2 Problems related to living alone; E03.9 Hypothyroidism, unspecified; I70.1 Atherosclerosis of renal artery; K59.00 Constipation, unspecified; N39.41 Urge incontinence; I65.23 Occlusion and stenosis of bilateral carotid arteries; Z90.49 Acquired absence of other specified parts of digestive tract; Z86.73 Personal history of transient ischemic attack (TIA), and cerebral infarction without residual deficits; Z88.8 Allergy status to other drugs, medicaments and biological substances; Z95.5 Presence of coronary angioplasty implant and graft; Z95.820 Peripheral vascular angioplasty status with implants and grafts; Z79.899 Other long term (current) drug therapy
CPT/HCPCS: 10102

== ENCOUNTER → 2020-06-11 | Outpatient (CLI) | payer OTHER | LOC: SJCVCIMAG 07:31 | PROVIDERS: ATTEND Internal Medicine Cardiovascular Disease | DX: R94.31 Abnormal electrocardiogram [ECG] [EKG] (principal); N13.30 Unspecified hydronephrosis; I70.1 Atherosclerosis of renal artery; K55.1 Chronic vascular disorders of intestine; I15.0 Renovascular hypertension; E78.00 Pure hypercholesterolemia, unspecified; I10 Essential (primary) hypertension; I63.9 Cerebral infarction, unspecified; E03.9 Hypothyroidism, unspecified; F41.9 Anxiety disorder, unspecified; Z86.73 Personal history of transient ischemic attack (TIA), and cerebral infarction without residual deficits; Z72.89 Other problems related to lifestyle; Z79.899 Other long term (current) drug therapy; Z88.6 Allergy status to analgesic agent; Z88.8 Allergy status to other drugs, medicaments and biological substances; Z88.1 Allergy status to other antibiotic agents; Z79.82 Long term (current) use of aspirin ==

== ENCOUNTER → 2021-03-24 | Outpatient (CLI) | payer OTHER | LOC: SJCVCIMAG 02-10 15:17 | PROVIDERS: ATTEND Nuclear Medicine Nuclear Cardiology | DX: I65.23 Occlusion and stenosis of bilateral carotid arteries (principal); N13.30 Unspecified hydronephrosis; I70.1 Atherosclerosis of renal artery; I25.10 Atherosclerotic heart disease of native coronary artery without angina pectoris; E78.00 Pure hypercholesterolemia, unspecified; I10 Essential (primary) hypertension; Z72.89 Other problems related to lifestyle ==

== ENCOUNTER → 2021-03-26 | Outpatient (CLI) | payer OTHER | LOC: SJCVC 10:25 | PROVIDERS: ATTEND Nuclear Medicine Nuclear Cardiology | DX: K55.1 Chronic vascular disorders of intestine (principal); I70.1 Atherosclerosis of renal artery; I15.0 Renovascular hypertension; I25.10 Atherosclerotic heart disease of native coronary artery without angina pectoris; I77.9 Disorder of arteries and arterioles, unspecified; E78.00 Pure hypercholesterolemia, unspecified; F41.9 Anxiety disorder, unspecified; M31.0 Hypersensitivity angiitis; R41.3 Other amnesia; M35.3 Polymyalgia rheumatica; Z86.73 Personal history of transient ischemic attack (TIA), and cerebral infarction without residual deficits; Z72.89 Other problems related to lifestyle; Z79.82 Long term (current) use of aspirin; Z79.899 Other long term (current) drug therapy; Z88.8 Allergy status to other drugs, medicaments and biological substances ==